=== PATIENT | male | born 1950 | race Caucasian/White ===

== ENCOUNTER 2023-01-12 09:17 | Outpatient (REF) | payer MEDICARE, SELFPAY ==
[2023-01-12 11:33] LABS: Anion Gap 17 (12-20); Blood Urea Nitrogen 35 mg/dL (9-16); Calcium 9.7 mg/dL (8.4-10.2); Carbon Dioxide 21 mmol/L (22-29); Chloride 92 mmol/L (96-108); Estimated Glomerular Filt Rate 56; Potassium 5.2 mmol/L (3.3-5.1); Sodium 125 mmol/L (135-145)
== END 2023-01-12 09:18 | disposition home or self-care (01) ==
LOC: HO.LAB 09:17
PROVIDERS: PCP Internal Medicine; Visit Provider Internal Medicine Nephrology
DX: E87.1 Hypo-osmolality and hyponatremia (principal)
CPT/HCPCS: 36415; 80051; 82310; 82565; 84520

== ENCOUNTER 2023-02-05 09:50 | Outpatient (REF) | payer MEDICARE, OTHER, SELFPAY ==
[2023-02-05 11:14] LABS: Anion Gap 12 (12-20); Blood Urea Nitrogen 26 mg/dL (9-16); Calcium 9.3 mg/dL (8.4-10.2); Carbon Dioxide 27 mmol/L (22-29); Chloride 92 mmol/L (96-108); Estimated Glomerular Filt Rate 57; Potassium 4.8 mmol/L (3.3-5.1); Sodium 126 mmol/L (135-145)
== END 2023-02-05 09:51 | disposition home or self-care (01) ==
LOC: HO.10HDL 09:50
PROVIDERS: Visit Provider Internal Medicine Nephrology
DX: E87.1 Hypo-osmolality and hyponatremia (principal)
CPT/HCPCS: 36415; 80051; 82310; 82565; 84520

== ENCOUNTER 2023-07-20 08:42 | Outpatient (REF) | payer MEDICARE, SELFPAY ==
[2023-07-20 11:39] LABS: Prostate Specific Antigen < 0.10 ng/mL (<0.05-4.0)
== END 2023-07-20 08:43 | disposition home or self-care (01) ==
LOC: HO.10HDL 08:42
PROVIDERS: Visit Provider Physician Assistant
DX: Z12.5 Encounter for screening for malignant neoplasm of prostate (principal); Z85.46 Personal history of malignant neoplasm of prostate
CPT/HCPCS: 36415; 84153

== ENCOUNTER 2023-07-23 11:03 | Day surgery (SDC) | payer MEDICARE, SELFPAY ==
[2023-07-18 08:53] VITALS: BMI 25.2
[2023-07-18 09:23] VITALS: BMI 25.2
--- NOTE | 2023-07-19 14:53 | P.CONAN_ITS ---
Documented by User: Radha Ling NP 07/20/23 09:12 HPI - Anesthesia Eval Consult details Narrative: 72yo M for Right Cataract Extraction IOL Insertion Chronic hyponatremia, baseline ~ 125 No previous cataract on record [facility] Past Medical History Medical History (Updated 07/18/23 @ 09:58 by Michelle Tan RN) Thoracic aortic aneurysm Colon cancer Prostate cancer Chronic hyponatremia Lumbar spinal stenosis Elevated cholesterol HTN (hypertension) CHF (congestive heart failure) PVD (peripheral vascular disease) Non-ischemic cardiomyopathy Surgical History Surgical History (Updated 07/18/23 @ 09:23 by Michelle Tan RN) H/O colonoscopy Hx of ligation of vein History of lumbar fusion Hx of hand surgery History of colon resection Social History Social History (Updated 07/18/23 @ 08:52 by Michelle Tan RN) Are you a primary lpn care manager to a significant other at home: No Do you presently have visiting nurse or other home services: No Patient Tobacco Use Status: Current everyday Tobacco user Tobacco use type: Cigar Cigarettes Per Day: 1 (cigar) Use of substances other than those prescribed or required for medical reasons: Yes Substance Use Type: Marijuana Substance Use Frequency: Occasionally Have you been hit, kicked, punched, or otherwise hurt by someone within the past year? If so, by whom?: No Are you DNR?: No Advance Directives Information Provided: Yes (as above noted) Advance Directives on File: No Recently lost weight without trying: No Eating poorly because of decreased appetite: No Nutrition Risks: No Nutritional Risk Poor oral hygiene: No (upper partial) Meds Allergies Allergy/AdvReac Type Severity Reaction Status Date / Time doxycycline Allergy Intermediate discoloration Verified 07/18/23 08:54 of genitals Home Medications ?Medication ?Instructions ?Recorded ?Confirmed ?Last Taken ?Type atorvastatin 40 mg tablet 40 mg PO DAILY 07/18/23 07/18/23 Unknown History cyanocobalamin (vitamin B-12) 1,000 mcg PO DAILY 07/18/23 07/18/23 Unknown History 1,000 mcg tablet (Vitamin B-12) folic acid 400 mcg tablet 0.4 mg PO DAILY 07/18/23 07/18/23 Unknown History gabapentin 100 mg capsule 100 mg PO BEDTIME 07/18/23 07/18/23 Unknown History lisinopril 40 mg tablet 40 mg PO DAILY 07/18/23 07/18/23 Unknown History metoprolol succinate 100 mg 100 mg PO QAM 07/18/23 07/20/23 07/23/23 History tablet,extended release 24 hr spironolactone 25 mg tablet 25 mg PO DAILY 07/18/23 07/18/23 Unknown History tamsulosin 0.4 mg capsule 0.4 mg PO BID 07/18/23 07/18/23 Unknown History torsemide 10 mg tablet 20 mg PO DAILY 07/18/23 07/18/23 Unknown History vit C 250 mg-vit E 90 mg-zinc 40 1 tab PO BID 07/18/23 07/18/23 Unknown History mg-copper 1 bi-[id number]-ntnyic capsule (PreserVision AREDS-2) Exam Height,Weight and Vital Signs: Height 5 ft 8.9 in Weight 77.2 kg Assessment and Plan Assessment Anesthesia Assessment: Chart Reviewed Documented by User: Matthew Barraza MD 07/23/23 13:51 [facility] Past Medical History Medical History (Updated 07/18/23 @ 09:58 by Michelle Tan RN) Thoracic aortic aneurysm Colon cancer Prostate cancer Chronic hyponatremia Lumbar spinal stenosis Elevated cholesterol HTN (hypertension) CHF (congestive heart failure) PVD (peripheral vascular disease) Non-ischemic cardiomyopathy Family History Family history of problems with anesthesia: No Surgical History Surgical History (Updated 07/18/23 @ 09:23 by Michelle Tan RN) H/O colonoscopy Hx of ligation of vein History of lumbar fusion Hx of hand surgery History of colon resection History of Problems with Anesthesia: No Social History Social History (Updated 07/18/23 @ 08:52 by Michelle Tan RN) Are you a primary lpn care manager to a significant other at home: No Do you presently have visiting nurse or other home services: No Patient Tobacco Use Status: Current everyday Tobacco user Tobacco use type: Cigar Cigarettes Per Day: 1 (cigar) Use of substances other than those prescribed or required for medical reasons: Yes Substance Use Type: Marijuana Substance Use Frequency: Occasionally Have you been hit, kicked, punched, or otherwise hurt by someone within the past year? If so, by whom?: No Are you DNR?: No Advance Directives Information Provided: Yes (as above noted) Advance Directives on File: No Recently lost weight without trying: No Eating poorly because of decreased appetite: No Nutrition Risks: No Nutritional Risk Poor oral hygiene: No (upper partial) Meds Allergies Allergy/AdvReac Type Severity Reaction Status Date / Time doxycycline Allergy Intermediate discoloration Verified 07/18/23 08:54 of genitals Home Medications ?Medication ?Instructions ?Recorded ?Confirmed ?Last Taken ?Type atorvastatin 40 mg tablet 40 mg PO DAILY 07/18/23 07/18/23 Unknown History cyanocobalamin (vitamin B-12) 1,000 mcg PO DAILY 07/18/23 07/18/23 Unknown History 1,000 mcg tablet (Vitamin B-12) folic acid 400 mcg tablet 0.4 mg PO DAILY 07/18/23 07/18/23 Unknown History gabapentin 100 mg capsule 100 mg PO BEDTIME 07/18/23 07/18/23 Unknown History lisinopril 40 mg tablet 40 mg PO DAILY 07/18/23 07/18/23 Unknown History metoprolol succinate 100 mg 100 mg PO QAM 07/18/23 07/20/23 07/23/23 History tablet,extended release 24 hr spironolactone 25 mg tablet 25 mg PO DAILY 07/18/23 07/18/23 Unknown History tamsulosin 0.4 mg capsule 0.4 mg PO BID 07/18/23 07/18/23 Unknown History torsemide 10 mg tablet 20 mg PO DAILY 07/18/23 07/18/23 Unknown History vit C 250 mg-vit E 90 mg-zinc 40 1 tab PO BID 07/18/23 07/18/23 Unknown History mg-copper 1 [id number] capsule (PreserVision AREDS-2) Exam Airway Mallampati Class: III TM Dist: >3cm Neck ROM: Full Loose/Missing/Broken Teeth: No Heart: rrr Lungs: cta Assessment and Plan Assessment Anesthesia Assessment: Anesthesia Plan Discussed Final Anesthetic Review Family History of Problems with Anesthesia: No History of Problems with Anesthesia: No NPO: Yes ASA Class: III Final Preanesthetic Review: No Changes in Pt Med Stat, Meds/Allgs Chart Reviewed, Consent Obtained/Reviewed and Anes Risks/Benef Reviewed Procedure Risk: Low Anesthetic Plan Anesthetic Plan: MAC: Disposition: Standard PACU
--- OUTSIDE RECORDS SUMMARY | 2023-07-23 11:07 | XMS_ITS | Continuity of Care Document ---
Author Organization [facility] Address [address] [place] [address]- Care Team Providers Care Ecdis N Navigation Operator Name Role Phone Luke MOORE, Santana Blanco Primary Care Physician Encounter [facility] R [id number] Date(s): 04/05/23 - 05/05/23 [facility] [address], [place] [address] Attending Physician: Trina White Admitting Physician: AdmtrTrina Referring Physician: AdmtrTrina Allergies, Adverse Reactions, Alerts Substance Reaction Severity Status doxycycline genitals turned black Active Immunizations Given and Recorded Vaccine Date Status Refusal Reason influenza virus vaccine, inactivated 12/25/19 Give n Medications aspirin 81 mg oral delayed release tablet 81 mg, 1, tablet, By Mouth, Daily, # 30 tablet, Refills 0, Tot. Refills 0, Maintenance, 12/27/19 12:45:00 EDT, Route to Pharmacy Electronically, [facility], 175, cm, 12/27/19 9:04:00 EDT, Height, 93, kg, 12/24/19 9:59:00 EDT, Dry Weight Start Date: 12/27/19 Status: Ordered Flomax 0.4 mg oral capsule 1 capsule = 0.4 mg, By Mouth, 2 times a day, # 30 capsule, 0 Refills, Maintenance, Capsule Start Date: 06/05/11 Status: Ordered folic acid 0.4 mg oral tablet 1 tablet = 0.4 mg, By Mouth, Daily, 0 Refills, Maintenance, 08/04/21 8:40:00 EDT, Partial fill uponpatient request if the prescription is for a schedule II opioid drug. Start Date: 08/04/21 Status: Ordered furosemide 20 mg oral tablet 20 mg, 1, tablet, By Mouth, 2 times a day, # 30 tablet, Refills 0, Tot. Refills 0, Maintenance, 12/27/19 13:08:00 EDT, Route to Pharmacy Electronically, [facility], 175, cm, 12/27/19 9:04:00 EDT, Height, 93, kg, 12/24/19 9:59:00 EDT, Dry... Start Date: 12/27/19 Status: Ordered Lipitor 40 mg oral tablet 1 tablet = 40 mg, By Mouth, Daily, # 30 tablet, 0 Refills, Maintenance, Tablet Start Date: 06/05/11 Status: Ordered lisinopril 20 mg oral tablet 1 tablet = 20 mg, By Mouth, Daily, # 30 tablet, 0 Refills, Maintenance, Tablet Start Date: 06/05/11 Status: Ordered metoprolol 100 mg oral tablet, extended release 100 mg, 1, tablet, By Mouth, Daily at bedtime, # 30 tablet, Refills 0, Tot. Refills 0, Maintenance,12/27/19 12:46:00 EDT, Route to Pharmacy Electronically, [facility], 175, cm, 12/27/19 9:04:00 EDT, Height, 93, kg, 12/24/19 9:59:00 EDT,... Start Date: 12/27/19 Status: Ordered PreserVision AREDS 2 2 times a day, 0 Refills, Maintenance, 08/04/21 8:41:00 EDT, Partial fill upon patient request if the prescription is for a schedule II opioid drug. Start Date: 08/04/21 Status: Ordered spironolactone 25 mg oral tablet 25 mg, 1, tablet, By Mouth, Daily, # 30 tablet, Refills 0, Tot. Refills 0, Maintenance, 12/27/19 12:46:00 EDT, Route to Pharmacy Electronically, [facility], 175, cm, 12/27/19 9:04:00 EDT, Height, 93, kg, 12/24/19 9:59:00 EDT, Dry Weight Start Date: 12/27/19 Status: Ordered torsemide 10 mg oral tablet 1 tablet = 10 mg, By Mouth, Daily, 0 Refills, Maintenance, 08/04/21 8:39:00 EDT, Partial fill upon patient request if the prescription is for a schedule II opioid drug. Start Date: 08/04/21 Status: Ordered trospium chloride 20 mg oral tablet 1 tablet = 20 mg, By Mouth, 2 times a day, 0 Refills, Maintenance, 08/04/21 8:40:00 EDT, Partial fill upon patient request if the prescription is for a schedule II opioid drug. Start Date: 08/04/21 Status: Ordered Vitamin B12 1000 mcg oral tablet 1 tablet = 1,000 mcg, By Mouth, Daily, 0 Refills, Maintenance, 08/04/21 8:41:00 EDT, Partial fill upon patient request if the prescription is for a schedule II opioid drug. Start Date: 08/04/21 Status: Ordered Problem List Condition Confirmation Course Effective Dates Status H ealth Status Informant Acquired hallux rigidus Confirmed 03/30/20 Active Acquired hammer toes of bilateral feet Confirmed 03/30/20 Active Ascending aortic aneurysm Confirmed Active Atherosclerosis of arteries of the extremities Confirmed 01/16/22 Active Benign essential hypertension Confirmed 02/03/21 Active Cardiomyopathy 1 Confirmed 02/17/20 Active Chronic systolic heart failure Confirmed 02/17/20 Active Coronary arteriosclerosis 2 Confirmed 02/17/20 Active Dyslipidemia 3 Confirmed 02/17/20 Active Hyperlipidemia Confirmed Active Hypertension Confirmed Active Peripheral nerve disease Confirmed 03/30/20 Active PVD (peripheral vascular disease) Confirmed Active Spinal stenosis of lumbar region Confirmed 04/25/21 Active 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 His physical exam does reveal slightly diminished breath sounds on the left side. We will intensify his diuretic therapy to torsemide 20 mg once daily with a basic metabolic profile in about a week's time. Patient does understand and agree. He also plans to see renal in the upcoming week or so. Continue ongoing medical therapy for his myopathywith JOHANNY inhibitor, beta-audie, Aldactone. Entresto has been cost prohibitive. 2Outside Source Comment: Overview: Cath 12/2019 showed moderate stenosis of the mid LAD and severe stenosis of the distal circumflex not amenable to PCI CI. 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 Continue ongoing medical therapy with aspirin, beta-audie, Aldactone, statin and JOHANNY inhibitor. 3Outside Source Comment: Overview: Last Assessment & Plan: Well-controlled lipid profile from earlier this year. Continue statin at current dose. Social History Social History Type Response Smoking Status Never (less than 100 in lifetime) entered on: 11/27/22 Sex Patient Care team information Care Team Personnel Name: Luke MOORE, Santana Blanco Position: [facility] Outreach Member Role: PCP Address: Address: [address] [place] [address] - [address] [place] [employer], [address] Care Team Related Persons Name: JUSTA MALLOY Address: home [address] [place] [address] Name: STEPHIE DUMONT Address: [place] [address]
--- OUTSIDE RECORDS SUMMARY | 2023-07-23 11:07 | XMS_ITS | Continuity of Care Document ---
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 Refills 0, Maintenance, 12/27/19 12:45:00 EDT, Route to Pharmacy Electronically, [facility], 175, cm, 12/27/19 9:04:00 [...] 12/27/19 13:08:00 EDT, Route to Pharmacy Electronically, [facility], 175, cm, 12/27/19 9:04:00 [...] Maintenance,12/27/19 12:46:00 EDT, Route to Pharmacy Electronically, [facility], 175, cm, 12/27/19 9:04:00 [...] 12/27/19 12:46:00 EDT, Route to Pharmacy Electronically, [facility], 175, cm, 12/27/19 9:04:00 [...] 1Outside Source Comment: Overview: LVEF December 2019 [facility] 30-35% with inferior wall and basal [...] this year. Continue statin at current dose. 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, bilateral Discharge Diagnosis 11/30/22 Vital Signs Most recent to oldest [Reference Range]: 1 Height 175 cm (11/30/22 9:19 AM) Weight 77.5 kg (11/30/22 9:19 AM) Pulse Rate [55-90 bpm] 50 bpm *L* (11/30/22 9:19 AM) Body Mass Index [18.5-24.99 kg/m2] 25.31 kg/m2 *H* (11/30/22 9:19 AM) Blood Pressure [90-138/55-84 mm Hg] 146/ 90mm Hg *H* (11/30/22 9:19 AM) Blood pressure sites Arm, left (11/30/22 9:19 AM) Weight Obtained Via Patient/family state d (11/30/22 9:19 AM) Social History Social History Type Response Smoking Status Never (less than 100 in lifetime) entered on: 11/27/22 Sex Note * Marie Haro: PERFORM, SIGN, VERIFY Event Display: Patient Education/Instruction Authored Date: [id number] [facility] *[facility] [address] Clinical Summary Name SARTHAK MALLOY Age 72 Years 1950 PCP Luke MOORE, Santana Blanco PCP Visit Date 11/30/2022 09:10:00 Additional Instructions: Scheduled Appointments?? Future Appointments ?No Future Appointments Scheduled Follow-Up Instructions ?? With: Address: When: Galilea MOORE, Christofer Packer In 6 months Comments: NIAS VIB Diagnosis Asymptomatic varicose veins of bilateral lower extremities; Peripheral vascular disease, unspecified Medications: Please continue your medications until treatment is completed or stopped by your provider. Discuss any questions related to medications with your provider. Medications to Continue with No Changes These medications were not printed or sent to your pharmacy Aspirin (aspirin 81 mg oral delayed release tablet) 1 tab(s) Oral Daily. Refills: 0. Next Dose: Atorvastatin (Lipitor 40 mg oral tablet) 1 tab(s) Oral Daily. Next Dose: Cyanocobalamin (Vitamin B12 1000 mcg oral tablet) 1 tab(s) Oral Daily. Next Dose: Folic Acid (folic acid 0.4 mg oral tablet) 1 tab(s) Oral Daily. Next Dose: Furosemide (furosemide 20 mg oral tablet) 1 tab(s) Oral twice a day. Refills: 0. Next Dose: Lisinopril (lisinopril 20 mg oral tablet) 1 tab(s) Oral Daily. Next Dose: Metoprolol (metoprolol 100 mg oral tablet, extended release) 1 tab(s) Oral Daily at Bedtime. Refills: 0. Next Dose: Multivitamin With Minerals (PreserVision AREDS 2) twice a day. Next Dose: Spironolactone (spironolactone 25 mg oral tablet) 1 tab(s) Oral Daily. Refills: 0. Next Dose: Tamsulosin (Flomax 0.4 mg oral capsule) 1 capsule Oral twice a day. Next Dose: torsemide (torsemide 10 mg oral tablet) 1 tab(s) Oral Daily. Next Dose: Trospium Chloride (trospium chloride 20 mg oral tablet) 1 tab(s) Oral twice a day. Next Dose: Allergy Info:?? doxycycline Medications Given This Visit Future Orders ?VL Ankle Brachial Indices? Order Date:11/30/22?- Complete on or after?11/30/22 ?VL Arterial Duplex Bilat Scan? Order Date:11/30/22?- Complete by?11/30/22 ?VL Venous Dup Scan Venous Insuf LE Bilat? Order Date:11/30/22?- Complete by?11/30/22 Vital Signs Height 175 cm Weight 77.5 kg BMI 25.31 kg/m2 Blood Pressure 146 mm Hg/90 mm Hg Temperature Pulse Rate 50 bpm Respiratory Rate 02 Sat Mode of Delivery / You can now view a summary of your hospital visit from the comfort of your home through a free online portal called [employer]. [employer] is a website that allows you to securely view your medical information including discharge summary, medications and follow-up visits. ??You can alsosend a secure electronic message to your doctor???s office to request appointments, renew medications or just ask a question. You can enroll at [email or web address] or register during your next office visit. Disclaimer:?? The information provided is of a general nature and is intended to be used in conjunction with the recommendations and advice of your health care practitioner. ??Every effort has been made to ensure that the information provided is accurate and complete at the time it is provided to you however, as your needs change, or, as new ??information becomes available, different or additional instructions may be required. If you have questions, please consult with your primary care provider or pharmacist, as appropriate. ??This information is not intended to serve as substitution for assessment and evaluation by a qualified health care provider. If you do not have a primary care provider, you may find a [facility] provider by calling [facility] [employer] Link at [phone]. [facility], in keeping with [facility] guidance, no longer requires face masks for staff, patientsor visitors in most situations. Similar to time spent indoors at other locations, there is the chance that you were exposed to respiratory viruses during your time with us (such as flu or COVID-19).? If you develop symptoms concerning for a viral respiratory infection, please seek testing (and treatment if indicated) from your medical provider or home test kit. For information about the plan of care including goals and instructions for your diagnosis, please see the patient education orders section of this document. Patient Education Materials?? The content of this educational material or handout may have been modified, supplemented, or adapted from its original content and format to support your individualized medical care. Patient Care team information Care Team Personnel Name: Santana Butler MD Position: [facility] Outreach Member Role: PCP Address: Address: [address] [place] [address] - [address] [employer], [facility] [place] [address]- Care Team Related Persons Name: JUSTA MALLOY Address: home [address] [place] [address] Name: STEPHIE DUMONT Address: [place] [address]
--- OUTSIDE RECORDS SUMMARY | 2023-07-23 11:07 | XMS_ITS | Continuity of Care Document ---
Author Organization [facility] Address [address] [place] [address]- Care Team Providers Care Broom Maker Name Role Phone Santana Butlre MD Primary Care Physician [id number] Date(s): 09/29/22 - 12/01/22 [facility] [address] [place], [place] [address] Attending Physician: Quinton Camarena MD Admitting Physician: Quinton Camarena MD Referring Physician: Santana Butler MD Allergies, [...] 12/27/19 12:45:00 EDT, Route to Pharmacy Electronically, [facility], 175, cm, 12/27/19 9:04:00 [...] 12/27/19 13:08:00 EDT, Route to Pharmacy Electronically, [facility], 175, cm, 12/27/19 9:04:00 EDT, Height, [...] Maintenance,12/27/19 12:46:00 EDT, Route to Pharmacy Electronically, [facility], 175, cm, 12/27/19 9:04:00 EDT, Height, [...] 12:46:00 EDT, Route to Pharmacy Electronically, [facility], 175, cm, 12/27/19 9:04:00 EDT, Height, [...] 1Outside Source Comment: Overview: LVEF December 2019 [facility] 30-35% with inferior wall and basal [...] Team Personnel Name: Santana Butler MD Position: [facility] Outreach Member Role: PCP Address: Address: [address] [place] [address] - [address] [employer], [place] [address]- Care Team Related Persons Name: JUSTA MALLOY Address: home [address] [place] [address] Name: STEPHIE DUMONT Address: [place] [address]
--- OUTSIDE RECORDS SUMMARY | 2023-07-23 11:07 | XMS_ITS | Continuity of Care Document ---
Author Organization [facility] Address [address] [place] [address]- Care Team Providers Care Desulphuring Operator Name Role Phone Luke MOORE, Santana Blanco Primary Care Physician Encounter [facility] [place] Date(s): 09/29/22 - 10/29/22 [facility] [address] [place] [address] [place] Allergies, Adverse Reactions, Alerts Substance Reaction Severity Status doxycycline genitals turned black Active Immunizations Given and Recorded Vaccine Date Status Refusal Reason influenza virus vaccine, inactivated 12/25/19 Give n Not Given Vaccine Date Status Refusal Reason pneumococcal 13-valent vaccine 12/25/19 Not Given Patient Refuses Medications aspirin 81 mg oral delayed release tablet 81 mg, 1, tablet, By Mouth, Daily, # 30 tablet, Refills 0, Tot. Refills 0, Maintenance, 12/27/19 12:45:00 EDT, Route to Pharmacy Electronically, [facility], 175, cm, 12/27/19 9:04:00 EDT, [...] 12/27/19 13:08:00 EDT, Route to Pharmacy Electronically, [facility], 175, cm, 12/27/19 9:04:00 EDT, [...] Maintenance,12/27/19 12:46:00 EDT, Route to Pharmacy Electronically, [facility], 175, cm, 12/27/19 9:04:00 EDT, [...] 12/27/19 12:46:00 EDT, Route to Pharmacy Electronically, [facility], 175, cm, 12/27/19 9:04:00 EDT, [...] opioid drug. Start Date: 08/04/21 Status: Ordered Patient Care team information Care Team Personnel Name: Santana Butler MD Position: [facility] Outreach Member Role: PCP Address: Address: [address] [place] [address] - [address] [place] [address], [place] [address]- Care Team Related Persons Name: JUSTA MALLOY Address: home [address] [place] [id number] Name: STEPHIE DUMONT Address: [place] [address]
--- OUTSIDE RECORDS SUMMARY | 2023-07-23 11:07 | XMS_ITS | Continuity of Care Document ---
Author Organization [facility] Address [address] [place] [address]- Care Team Providers Care Supervisor Plastics Name Role Phone Santana Butler MD Primary Care Physician Encounter [facility] [place] Date(s): 06/15/23 - 07/15/23 [facility] [address] [place], [place] [address] Attending Physician: Trina White Admitting Physician: AdmTrina landry Referring Physician: AdmtrTrina Allergies, Adverse Reactions, Alerts Substance Reaction Severity Status doxycycline genitals turned black Active Immunizations Given and Recorded Vaccine Date Status Refusal Reason influenza virus vaccine, inactivated 12/25/19 Give n Medications aspirin 81 mg oral delayed release tablet 81 mg, 1, tablet, By Mouth, Daily, # 30 tablet, Refills 0, Tot. Refills 0, Maintenance, 12/27/19 12:45:00 EDT, Route to Pharmacy Electronically, [facility], 175, cm, 12/27/19 9:04:00 [...] opioid drug. Start Date: 08/04/21 Status: Ordered gabapentin 100 mg oral capsule TAKE 1 CAPSULE AT BEDTIME ,INCREASE BY 1 CAPSULE EVERY OTHER DAY NEEDED UP TO 3 CAPS 3X A DAY Start Date: 07/09/23 Status: Ordered Lipitor 40 mg oral tablet [...] Maintenance,12/27/19 12:46:00 EDT, Route to Pharmacy Electronically, [facility], 175, cm, 12/27/19 9:04:00 [...] 12/27/19 12:46:00 EDT, Route to Pharmacy Electronically, [facility], 175, cm, 12/27/19 9:04:00 [...] Active PVD (peripheral vascular disease) Confirmed Active Polyneuropathy Confirmed Active Spinal stenosis of lumbar region Confirmed 04/25/21 Active 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, bilateral Confirmed Active Chronic venous hypertension (idiopathic) with other complications of right lower extremity Confirmed Active Chronic venous hypertension (idiopathic) with other complications of left lower extremity Confirmed Active 1Outside Source Comment: Overview: LVEF December 2019 [facility] 30-35% with inferior wall and basal [...] History Social History Type Response Smoking Status Cigars or pipes but not daily within last 30 days;Former smoker, quit more than 30 days ago; Type: Cigarettes entered on: 06/15/23 Sex Patient Care team information Care Team Personnel Name: Santana Butler MD Position: [facility] Outreach Member Role: PCP Address: Address: [address] [place] [address] - [address] [facility] [employer], [place] [address]- Care Team Related Persons Name: JUSTA MALLOY Address: home [address] [place] [id number] Name: STEPHIE DUMONT Address: [place] [address]
--- OUTSIDE RECORDS SUMMARY | 2023-07-23 11:07 | XMS_ITS | Patient Health Record ---
Author Organization [facility] Address [address] [place] [address] Care Team Providers Care Deputy Court Clerk Name Role Phone Santana Butler MD Primary Care Provider Aris Macario Unavailable [phone] ALLERGIES Allergen (clinical drug ingredient) Drug/Non Drug Allergy documented on EMR Reaction Allergy Type Onset Date Status hay fever (uncoded) Unknown Allergy Active doxycycline Doxycycline Unknown Drug Allergy Act jeremy REASON FOR REFERRAL No Information MEDICATIONS Medication SIG (Take, Route, Frequency, Duration) Notes Start Date End Date Status Tamsulosin HCl 0.4 MG 1 capsule Orally O nce a day Active Ammonium Lactate 12 % 1 application to affected area Externally to feet Twice a day for 30 days Active Torsemide Active Spironolactone Activ e PreserVision AREDS A ctive Metoprolol Succinate 100 MG 1 capsule Orally Once a day Active Lisinopril Active Aspirin Active oxyBUTYnin Chloride ER 10 MG 1 tablet Orally Once a day Not-Taking Metoprolol Tartrate 100 MG 1 tablet with food Orally Twice a day Not-Taking Folic Acid Active Lidocaine 5 % 1 application as needed Externally Three times a day for 30 days 09/07/2022 Not-Taking Atorvastatin Calcium 40 MG 1 tablet Oral ly Once a day Active Indomethacin 50 MG 1 capsule with food or milk Orally Twice a day Not-Taking SOCIAL HISTORY Tobacco Use: Social History Observation Description Date Details (start date - stop date) Former Smoker NA - NA Sex Assigned At : Social History Observation Description Sex Assigned At Unknown Tobacco Use/Smoking Question Answer Notes Are you a: former smoker When did you stop smoking? 20 yrs ago Additional Findings: Tobacco Non-User Current no n-smoker Alcohol Screen Question Answer Notes Did you have a drink contain ing alcohol in the past year? Yes How often did you have a dri nk containing alcohol in the past year? 4 or more times a week (4 points) How many drinks did you have on a typical day when you were drinking in the past year? 1 or 2 drinks (0 point) How often did you have 6 or more drinks on one occasion in the past year? Never (0 point) Points 4 Interpretation Positive Tobacco use other than smoking: Question Answer Notes Are you an other tobacco user? No PROBLEMS Problem Type ICD Code Onset Dates Problem Status W/U Status Risk SNOMED Code Notes Problem Plantar wart (B07.0) Active confirmed Plantar wart (43884715) Problem Atherosclerosis of [place] artery of both lower extremities, with unspecified presence of clinical manifestation (I70.203) Active confirmed Atherosclerosis of [place] arteries of the extremities (111242895394242) VITAL SIGNS Height 5ft 9in in 06/27/2023 Weight 170 lbs 06/27/2023 BMI 25.1 kg/m2 06/27/2023 PROCEDURES Procedure Date Ordered Date Performed Result Body Sit e 83495-TUHBUWY NAIL, 6 OR MORE 07/27/2022 N/A 51267-Hszt Destruction, 1-14 07/27/2022 N/A 66094-JRDD SKIN LESIONS, OVER 4 07/27/2022 N/A 36236-Hwcp Destruction, 1-14 09/07/2022 N/A 17091-EVDDBJP NAIL, 6 OR MORE 10/19/2022 N/A 86766-Scjk Destruction, 1-14 10/19/2022 N/A 39614-DHBW SKIN LESIONS, OVER 4 10/19/2022 N/A 90179-YRTVAAG NAIL, 6 OR MORE 01/08/2023 N/A 26734-Rtkj Destruction, 1-14 01/08/2023 N/A 62957-KDCH SKIN LESIONS, OVER 4 01/08/2023 N/A 54307-Jurv Destruction, 1-14 02/19/2023 N/A 52627-JTDZKMY NAIL, 6 OR MORE 03/26/2023 N/A 11923-Yeop Destruction, 1-14 03/26/2023 N/A 56721-QVAH SKIN LESIONS, OVER 4 03/26/2023 N/A 23316-Ljvw Destruction, 1-14 05/14/2023 N/A 86752-ARTZFRE NAIL, 6 OR MORE 06/27/2023 N/A 93778-Tmab Destruction, 1-14 06/27/2023 N/A 40982-UEXZ SKIN LESIONS, OVER 4 06/27/2023 N/A Encounters Encounter Location Date Provider Diagnosis [address] [address] 07/27/2022 Aris Torres Atherosclerosis of [place] artery of both lower extremities, with unspecified presence of clinical manifestation I70.203 ; Plantar wart B07.0 ; Tinea unguium B35.1 ; Pain in right toe(s) M79.674 ; Pain in left toe(s) M79.675 ; Pain in right foot M79.671 and Xerosis cutis L85.[address] [address] 09/07/2022 Aris Torres Plantar wart B07.0 ; Pain in right foot M79.671 ; Hammertoe of second toe of right foot M20.41 and Pain in right toe(s) M79.[address] [address] 10/19/2022 Aris Torres Atherosclerosis of [place] artery of both lower extremities, with unspecified presence of clinical manifestation I70.203 ; Onychomycosis B35.1 ; Pain of toe of right foot M79.674 ; Pain of toe of left foot M79.675 ; Verruca pedis B07.0 and Right foot pain M79.[address] [address] 11/23/2022 Aris Torres [address] [address] 11/23/2022 Aris Torres [address] [address] 01/08/2023 Aris Torres Atherosclerosis of [place] artery of both lower extremities, with unspecified presence of clinical manifestation I70.203 ; Onychomycosis B35.1 ; Pain of toe of right foot M79.674 ; Pain of toe of left foot M79.675 ; Verruca pedis B07.0 and Right foot pain M79.671 [facility] [address] [address] 02/19/2023 Arisstefano Torres Right foot pain M79.671 ; Plantar wart B07.0 ; Pain in right ankle and joints of right foot M25.571 ; Bursitis of intermetatarsal bursa of right foot M77.51 and Metatarsalgia, right foot M77.[address] [address] [facility] [address] 03/26/2023 Aris Torres Atherosclerosis of [place] artery of both lower extremities, with unspecified presence of clinical manifestation I70.203 ; Onychomycosis B35.1 ; Pain of toe of right foot M79.674 ; Pain of toe of left foot M79.675 ; Verruca pedis B07.0 and Right foot pain M79.[address] [address] 04/30/[address] [address] 04/30/2023 [facility] [address] [facility]/10/2023 [facility] [address] 05/14/2023 Aris Torres Right foot pain M79.671 and Plantar wart B07.[address] [address] 06/27/2023 Aris Torres Atherosclerosis of [place] artery of both lower extremities, with unspecified presence of clinical manifestation I70.203 ; Onychomycosis B35.1 ; Pain of toe of right foot M79.674 ; Pain of toe of left foot M79.675 ; Verruca pedis B07.0 and Right foot pain M79.671 ASSESSMENTS Encounter Date Diagnosis Assessment Notes Treatment Notes Treatment Clinical Notes 07/27/2022 Plantar wart (ICD-10 - B07.0) 07/27/2022 Atherosclerosis of [place] artery of both lower extremities, with unspecified presence of clinical manifestation (ICD-10 - I70.203) 09/07/2022 Pain in right foot (ICD-10 - M79.671) 09/07/2022 Plantar wart (ICD-10 - B07.0) 10/19/2022 Onychomycosis (ICD-1 0 - B35.1) 10/19/2022 Atherosclerosis of [place] artery of both lower extremities, with unspecified presence of clinical manifestation (ICD-10 - I70.203) 01/08/2023 Onychomycosis (ICD-1 0 - B35.1) 01/08/2023 Atherosclerosis of [place] artery of both lower extremities, with unspecified presence of clinical manifestation (ICD-10 - I70.203) 02/19/2023 Right foot pain (ICD-10 - M79.671) 03/26/2023 Onychomycosis (ICD-1 0 - B35.1) 03/26/2023 Atherosclerosis of [place] artery of both lower extremities, with unspecified presence of clinical manifestation (ICD-10 - I70.203) 05/14/2023 Plantar wart (ICD-10 - B07.0) 05/14/2023 Right foot pain (ICD-10 - M79.671) 06/27/2023 Onychomycosis (ICD-1 0 - B35.1) 06/27/2023 Atherosclerosis of [place] artery of both lower extremities, with unspecified presence of clinical manifestation (ICD-10 - I70.203) 06/27/2023 Pain of toe of right foot (ICD-10 - M79.674) 03/26/2023 Pain of toe of right foot (ICD-10 - M79.674) 02/19/2023 Pain in right ankle and joints of right foot (ICD-10 - M25.571) 02/19/2023 Plantar wart (ICD-10 - B07.0) 01/08/2023 Pain of toe of right foot (ICD-10 - M79.674) 09/07/2022 Hammertoe of second toe of right foot (ICD-10 - M20.41) 10/19/2022 Pain of toe of right foot (ICD-10 - M79.674) 07/27/2022 Tinea unguium (ICD-1 0 - B35.1) 07/27/2022 Pain in right toe(s) (ICD-10 - M79.674) 10/19/2022 Pain of toe of left foot (ICD-10 - M79.675) 09/07/2022 Pain in right toe(s) (ICD-10 - M79.674) 01/08/2023 Pain of toe of left foot (ICD-10 - M79.675) 02/19/2023 Bursitis of intermetatarsal bursa of right foot (ICD-10 - M77.51) 03/26/2023 Pain of toe of left foot (ICD-10 - M79.675) 06/27/2023 Pain of toe of left foot (ICD-10 - M79.675) 06/27/2023 Verruca pedis (ICD-1 0 - B07.0) Chronic 03/26/2023 Verruca pedis (ICD-1 0 - B07.0) Chronic 10/19/2022 Verruca pedis (ICD-1 0 - B07.0) 02/19/2023 Metatarsalgia, right foot (ICD-10 - M77.41) 01/08/2023 Verruca pedis (ICD-1 0 - B07.0) Chronic 07/27/2022 Pain in left toe(s) (ICD-10 - M79.675) 07/27/2022 Pain in right foot (ICD-10 - M79.671) 01/08/2023 Right foot pain (ICD-10 - M79.671) 10/19/2022 Right foot pain (ICD-10 - M79.671) 03/26/2023 Right foot pain (ICD-10 - M79.671) 06/27/2023 Right foot pain (ICD-10 - M79.671) 07/27/2022 Xerosis cutis (ICD-1 0 - L85.3) PLAN OF TREATMENT Pending Test Test Name Order Date 71727-JWMJIXX NAIL, 6 OR MORE 04/10/2022 19660-AYKKCCE NAIL, 6 OR MORE 07/27/2022 07952-VOMBKTK NAIL, 6 OR MORE 10/19/2022 94672-MGKWFMX NAIL, 6 OR MORE 03/26/2023 81479-TRDNLOQ NAIL, 6 OR MORE 06/27/2023 12169-PYUZDAT NAIL, 6 OR MORE 03/25/2018 50346-BUDRSJS NAIL, 6 OR MORE 06/24/2018 66481-QJGSKCE NAIL, 6 OR MORE 10/07/2018 12001-NHOQUCD NAIL, 6 OR MORE 01/06/2019 74311-KAUGSON NAIL, 6 OR MORE 04/16/2019 62697-OEQJSAP NAIL, 6 OR MORE 07/16/2019 75085-HAYTCGI NAIL, 6 OR MORE 04/25/2021 96534-WGALJYU NAIL, 6 OR MORE 07/25/2021 25271-MYRRIUX NAIL, 6 OR MORE 10/24/2021 89349-XWNOTSL NAIL, 6 OR MORE 01/23/2022 02255-DVEEHXM NAIL, 6 OR MORE 01/08/2023 07201-Aibg Destruction, -01/08/2023 90251-Emnv Destruction, -05/14/2023 54567-Bfar Destruction, -14 01/23/2022 21420-Mbsb Destruction, -14 12/15/2021 89655-Rnue Destruction, -14 02/19/2023 44288-Lxvh Destruction, -14 10/24/2021 28613-Ftpn Destruction, -14 07/16/2019 76716-Basr Destruction, -14 04/16/2019 79091-Iyqt Destruction, -14 01/06/2019 57440-Yqdp Destruction, 04-0110/07/2018 27743-Rzop Destruction, -14 06/24/2018 44809-Sqat Destruction, -14 06/27/2023 35385-Fvot Destruction, -14 03/26/2023 37023-Oizl Destruction, -10/19/2022 55190-Tiqk Destruction, -04/12/2017 60253-Xiba Destruction, 04-0107/16/2017 14533-Bhgh Destruction, 04-0110/17/2017 89593-Sdiz Destruction, 04-0101/10/2018 39211-Mggd Destruction, 04-0103/25/2018 57399-Uhfn Destruction, 04-0107/27/2022 46682-Uvsm Destruction, 04-0105/29/2022 54718-Ouaa Destruction, 04-0109/07/2022 01066-Fovk Destruction, 04-0104/10/2022 84935-Fhfi Destruction, 04-0103/02/2022 33259-Jplvcrke Plate 04/25/2021 25344- Debride <25 sq cm 04/10/2022 78347-HCPUEGC SKIN/TISSUE 03/22/2022 58143-JYQU SKIN LESIONS, OVER 4 01/24/20 22 69973-TGZI SKIN LESIONS, OVER 4 10/25/19 22 17794-ZCFP SKIN LESIONS, OVER 4 01/09/20 23 86846-IXWW SKIN LESIONS, OVER 4 04/10/19 23 19606-TAFC SKIN LESIONS, OVER 4 07/28/19 23 68587-VFYA SKIN LESIONS, OVER 4 10/20/19 23 65127-HFUA SKIN LESIONS, OVER 4 03/26/19 24 94754-MIIV SKIN LESIONS, OVER 4 04/25/19 22 67832-CMLS SKIN LESIONS, OVER 4 07/26/19 22 73936-XYVS SKIN LESIONS, OVER 4 06/27/19 24 Insurance Providers Payer Name Payer Address Payer Phone Subscriber Number Group Number Insured Name Patient Relationship to Insured Coverage Start Date Coverage End Date [employer]age [address] [place] [address] [id number] Anselmo Rod Self - patient is the insured MEDICAL (GENERAL) HISTORY Medical History History ICD Code Arthritis Back,Hip,and Knee pain Cancer Cholesterol High blood pressure Gout Mumps Surgical History Surgery Date(Month/Year) back surgery colon hand/wrist 05/10/17
--- OUTSIDE RECORDS SUMMARY | 2023-07-23 11:07 | XMS_ITS | Continuity of Care Document ---
Author Organization [facility] Address [address] [place] [address]- Care Team Providers Care Shot Bagger Name Role Phone Santana Butler MD Primary Care Physician Encounter [facility] ACCT R [id number] Date(s): 08/26/20 - 09/25/20 [facility] [address] [place] [id number] Attending Physician: Trina White Admitting Physician: AdmTrina [...] 12/27/19 12:45:00 EDT, Route to Pharmacy Electronically, [facility], 175, cm, 12/27/19 9:04:00 EDT, Height, 93, kg, 12/24/19 9:59:00 EDT, Dry Weight Start Date: 12/27/19 Status: Ordered Flomax 0.4 mg oral capsule 1 capsule = 0.4 mg, By Mouth, 2 times a day, # 30 capsule, 0 Refills, Maintenance, Capsule Start Date: 06/05/11 Status: Ordered furosemide 20 mg oral tablet 20 mg, 1, tablet, By Mouth, 2 times a day, # 30 tablet, Refills 0, Tot. Refills 0, Maintenance, 12/27/19 13:08:00 EDT, Route to Pharmacy Electronically, [facility], 175, cm, 12/27/19 9:04:00 [...] Maintenance,12/27/19 12:46:00 EDT, Route to Pharmacy Electronically, [facility], 175, cm, 12/27/19 9:04:00 EDT, Height, 93, kg, 12/24/19 9:59:00 EDT,... Start Date: 12/27/19 Status: Ordered spironolactone 25 mg oral tablet 25 mg, 1, tablet, By Mouth, Daily, # 30 tablet, Refills 0, Tot. Refills 0, Maintenance, 12/27/19 12:46:00 EDT, Route to Pharmacy Electronically, [facility], 175, cm, 12/27/19 9:04:00 EDT, Height, 93, kg, 12/24/19 9:59:00 EDT, Dry Weight Start Date: 12/27/19 Status: Ordered
--- OUTSIDE RECORDS SUMMARY | 2023-07-23 11:07 | XMS_ITS | Continuity of Care Document ---
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, bilateral (Discharge Diagnosis) - 06/13/23 Chronic systolic heart failure(Discharge Diagnosis) - 06/13/23 Chronic venous hypertension (idiopathic) with other complications of right lower extremity(Discharge Diagnosis) - 06/14/23 Chronic venous hypertension (idiopathic) with other complications of left lower extremity(Discharge Diagnosis) - 06/14/23 Hyperlipidemia(Discharge Diagnosis) - 06/15/23 Polyneuropathy(Discharge Diagnosis) - 06/15/23 Attending Physician: Christofer Calero MD Admitting Physician: Christofer Calero MD Allergies, Adverse Reactions, Alerts Substance Reaction Severity Status doxycycline genitals turned black Active Immunizations Given and Recorded Vaccine Date Status Refusal Reason influenza virus vaccine, inactivated 12/25/19 Give n Medications aspirin 81 mg oral delayed release tablet 81 mg, 1, tablet, By Mouth, Daily, # 30 tablet, Refills 0, Tot. Refills 0, Maintenance, 12/27/19 12:45:00 EDT, Route to Pharmacy Electronically, [facility], 175, cm, 12/27/19 9:04:00 [...] 12/27/19 13:08:00 EDT, Route to Pharmacy Electronically, [facility], 175, cm, 12/27/19 9:04:00 [...] Maintenance,12/27/19 12:46:00 EDT, Route to Pharmacy Electronically, [facility], 175, cm, 12/27/19 9:04:00 [...] 12/27/19 12:46:00 EDT, Route to Pharmacy Electronically, [facility], 175, cm, 12/27/19 9:04:00 [...] 1Outside Source Comment: Overview: LVEF December 2019 [facility] 30-35% with inferior wall and basal [...] Informant PVD (peripheral vascular disease) Discharge Diagnosis 06/13/23 Chronic systolic heart failure Discharge Diagnosis 06/13/23 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, bilateral Discharge Diagnosis 06/13/23 Chronic venous hypertension (idiopathic) with other complications of right lower extremity Discharge Diagnosis 06/14/23 Chronic venous hypertension (idiopathic) with other complications of left lower extremity Discharge Diagnosis 06/14/23 Hyperlipidemia Discharge Diagnosis 06/15/23 Polyneuropathy Discharge Diagnosis 06/15/23 Vital Signs Most recent to oldest [Reference Range]: 1 Height 175 cm (06/15/23 8:23 AM) Weight 79.38 kg (06/15/23 8:23 AM) Pulse Rate [55-90 bpm] 46 bpm *L* (06/15/23 8:23 AM) Body Mass Index [18.5-24.99 kg/m2] 25.92 kg/m2 *H* (06/15/23 8:23 AM) Blood Pressure [90-138/55-84 mm Hg] 140/ 66mm Hg *H* (06/15/23 8:23 AM) Blood pressure sites Arm, left (06/15/23 8:23 AM) Weight Obtained Via Patient/family state d (06/15/23 8:23 AM) Social History Social History Type Response Smoking Status Cigars or pipes but not daily within last 30 days;Former smoker, quit more than 30 days ago; Type: Cigarettes entered on: 06/15/23 Sex Note * Marie Haro: PERFORM, SIGN, VERIFY Event Display: Patient Education/Instruction Authored Date: [id number] [facility] [address] Clinical Summary Name SARTHAK MALLOY Age 72 Years 1950 PCP Luke MOORE, Santana Blanco PCP Visit Date 06/15/2023 07:53:00 Additional Instructions: Scheduled Appointments?? Future Appointments ?*[facility] ?[address]??[place],??[place],??[address] ?Phone:??--?Fax:??-- ?Appt. Date:??07/09/2023?10:15 AM ?Scheduled Provider:??Bo Barnett MD Follow-Up Instructions ?? With: Address: When: Christofer Calero MD In 12 months Comments: Non Invasive Arterial Studies Diagnosis Chronic venous hypertension (idiopathic) with other complications of left lower extremity; Asymptomatic varicose veins of bilateral lower extremities; Chronic systolic (congestive) heart failure; Peripheral vascular disease, unspecified; Hyperlipidemia, unspecified; Polyneuropathy, unspecified; Chronic venous hypertension (idiopathic) with other complications of right lower extremity Medications: Please continue your medications until treatment [...] Medications Given This Visit Future Orders ?VL Lower Arterial PVR Without Exercise? Order Date:06/15/23?- Complete by?06/15/23 Future Orders ?VL Lower Arterial PVR Without Exercise? Order Date:06/15/23?- Complete by?06/15/23 Vital Signs Height Weight BMI Blood Pressure / Temperature Pulse Rate Respiratory Rate 02 Sat Mode of Delivery / You can now view a summary of your hospital visit from the comfort of your home through a free online portal called [employer]. [employer] is a website that allows you to securely view your medical information including discharge summary, medications and follow-up visits. ??You can alsosend a secure electronic message to your doctor???s office to request appointments, renew medications or just ask a question. You can enroll at [email or web address] or register during your next office [...] care provider, you may find a [facility] provider by calling [employer] Information Link at [phone]. [facility], in keeping with [facility] guidance, no longer requires face masks [...] Personnel Name: Luke MOORE, Santana Blanco Position: [facility] Outreach Member Role: PCP Address: Address: [address] [place] [address] - [address] [facility], [place] [address]- Care Team Related Persons Name: JUSTA MALLOY Address: home [address] [place] [address] Name: STEPHIE DUMONT Address: [place] [address]
--- OUTSIDE RECORDS SUMMARY | 2023-07-23 11:07 | XMS_ITS | Continuity of Care Document ---
Author Organization [facility] Address [address] [place] [address]- Care Team Providers Care Body Masker Name Role Phone Luke MOORE, Santana Blanco Primary Care Physician En[place] [facility] Date(s): 07/09/23 - 07/16/23 [facility] [address] [place], [place] [address] Attending Physician: Anibal MOORE, Bo Singh Referring Physician: Darrell MOORE, Nomi Jeffries Allergies, Adverse Reactions, Alerts Substance Reaction Severity Status doxycycline genitals turned black Active Immunizations Given and Recorded Vaccine Date Status Refusal Reason influenza virus vaccine, inactivated 12/25/19 Give n Medications aspirin 81 mg oral delayed release tablet 81 mg, 1, tablet, By Mouth, Daily, # 30 tablet, Refills 0, Tot. Refills 0, Maintenance, 12/27/19 12:45:00 EDT, Route to Pharmacy Electronically, [facility], 175, cm, 12/27/19 9:04:00 [...] Maintenance,12/27/19 12:46:00 EDT, Route to Pharmacy Electronically, [facility], 175, cm, 12/27/19 9:04:00 [...] 12/27/19 12:46:00 EDT, Route to Pharmacy Electronically, [facility], 175, cm, 12/27/19 9:04:00 [...] 1Outside Source Comment: Overview: LVEF December 2019 [facility] 30-35% with inferior wall and basal [...] this year. Continue statin at current dose. Vital Signs Most recent to oldest [Reference Range]: 1 Height 175 cm (07/09/23 10:12 AM) Weight 77.2 kg (07/09/23 10:12 AM) Oxygen Saturation [94-100 %] 100 % (07/09/23 10:12 AM) Pulse Rate [55-90 bpm] 50 bpm *L* (07/09/23 10:12 AM) Body Mass Index [18.5-24.99 kg/m2] 25.21 kg/m2 *H* (07/09/23 10:12 AM) Blood Pressure [90-138/55-84 mm Hg] 153/ 71mm Hg *H* (07/09/23 10:12 AM) Respiratory Rate [16-30 br/min] 18 br/mi n (07/09/23 10:12 AM) Mode of Delivery (Oxygen) Room air (07/09/23 10:12 AM) Blood pressure sites Arm, left (07/09/23 10:12 AM) Weight Obtained Via Standing scale (07/09/23 10:12 AM) Social History Social History Type Response Smoking Status Cigars or pipes but not daily within last 30 days;Former smoker, quit more than 30 days ago; Type: Cigarettes entered on: 06/15/23 Sex Patient Care team information Care Team Personnel Name: Santana Butler MD Position: [facility] Outreach Member Role: PCP Address: Address: [address] [place] [address] - [address] [employer] [place] [address]- Care Team Related Persons Name: JUSTA MALLOY Address: home [address] [place] [address] Name: STEPHIE DUMONT Address: [place] [address]
--- OUTSIDE RECORDS SUMMARY | 2023-07-23 11:07 | XMS_ITS | Continuity of Care Document ---
Author Organization [facility] Address Unknown Care Team Providers Care Chemistry Physics Teacher Name Role Phone Santana Butler MD Primary Care Phys[id number] Date(s): 09/24/20 - 01/22/21 [facility] Attending Physician: Matthew King MD Admitting Physician: Matthew King MD Referring Physician: Santana Butler MD Allergies, [...] 12/27/19 12:45:00 EDT, Route to Pharmacy Electronically, [facility], 175, cm, 12/27/19 9:04:00 [...] 12/27/19 13:08:00 EDT, Route to Pharmacy Electronically, [facility], 175, cm, 12/27/19 9:04:00 [...] Maintenance,12/27/19 12:46:00 EDT, Route to Pharmacy Electronically, [facility], 175, cm, 12/27/19 9:04:00 EDT, Height, 93, kg, 12/24/19 9:59:00 EDT,... Start Date: 12/27/19 Status: Ordered spironolactone 25 mg oral tablet 25 mg, 1, tablet, By Mouth, Daily, # 30 tablet, Refills 0, Tot. Refills 0, Maintenance, 12/27/19 12:46:00 EDT, Route to Pharmacy Electronically, [facility], 175, cm, 12/27/19 9:04:00 EDT, Height, 93, kg, 12/24/19 9:59:00 EDT, Dry Weight Start Date: 12/27/19 Status: Ordered
--- OUTSIDE RECORDS SUMMARY | 2023-07-23 11:07 | XMS_ITS | Continuity of Care Document ---
Author Organization [facility] Address [address] [place] [address]- Care Team Providers Care Patient Liaison Name Role Phone Luke MOORE, Santana Blanco Primary Care Physician Encounter [facility] Date(s): 03/06/23 - 05/05/23 [facility] [address] [place], [place] [address] Attending Physician: Anibal MOORE, Bo Singh [...] 12/27/19 12:45:00 EDT, Route to Pharmacy Electronically, [facility], 175, cm, 12/27/19 9:04:00 [...] 12/27/19 13:08:00 EDT, Route to Pharmacy Electronically, [facility], 175, cm, 12/27/19 9:04:00 [...] 12:46:00 EDT, Route to Pharmacy Electronically, [facility], 175, cm, 12/27/19 9:04:00 EDT, Height, [...] 12/27/19 12:46:00 EDT, Route to Pharmacy Electronically, [facility], 175, cm, 12/27/19 9:04:00 [...] 1Outside Source Comment: Overview: LVEF December 2019 [facility] 30-35% with inferior wall and [...] Personnel Name: Luke MOORE, Santana Blanco Position: [facility] Outreach Member Role: PCP Address: Address: [address] [place] [address] - [address] [employer] [place] [address]- Care Team Related Persons Name: JUSTA MALLOY Address: home [address] [place] [address] Name: STEPHIE DUMONT Address: [place] [address]
--- OUTSIDE RECORDS SUMMARY | 2023-07-23 11:07 | XMS_ITS | Continuity of Care Document ---
Author Organization [facility] Address Unknown Care Team Providers Care Vocational Rehabilitation Consultant Name Role Phone Luke MOORE, Santana Blanco Primary Care Physician [phone] Encounter [facility] Date(s): 08/04/21 - 09/03/21 [facility] Attending Physician: Trina White Admitting Physician: Trina White Referring Physician: Trina White Allergies, Adverse Reactions, Alerts Substance Reaction Severity [...] 12/27/19 12:45:00 EDT, Route to Pharmacy Electronically, [facility], 175, cm, 12/27/19 9:04:00 [...] 12/27/19 13:08:00 EDT, Route to Pharmacy Electronically, [facility], 175, cm, 12/27/19 9:04:00 [...] Maintenance,12/27/19 12:46:00 EDT, Route to Pharmacy Electronically, [facility], 175, cm, 12/27/19 9:04:00 EDT, Height, [...] 12/27/19 12:46:00 EDT, Route to Pharmacy Electronically, [facility], 175, cm, 12/27/19 9:04:00 [...]
--- OUTSIDE RECORDS SUMMARY | 2023-07-23 11:07 | XMS_ITS | Continuity of Care Document ---
Author Organization [facility] Address [address] [place] [address]- Care Team Providers Care Toggle Press Operator Name Role Phone Luke MOORE, Santana Blanco Primary Care Physician [phone] Encounter [facility] Date(s): 12/23/19 - 12/27/[address] [address]- [facility] Encounter Diagnosis New onset of congestive heart failure(Final) - 12/23/19 Discharge Disposition: A-D/C Home Attending Physician: Dimas Mcgrath MD Admitting Physician: Patti Harvey DO Referring Physician: Not on Staff, Referring MD Allergies, Adverse Reactions, Alerts Substance Reaction [...] 12/27/19 12:45:00 EDT, Route to Pharmacy Electronically, [facility], 175, cm, 12/27/19 9:04:00 [...] 12/27/19 13:08:00 EDT, Route to Pharmacy Electronically, [facility], 175, cm, 12/27/19 9:04:00 [...] Maintenance,12/27/19 12:46:00 EDT, Route to Pharmacy Electronically, [facility], 175, cm, 12/27/19 9:04:00 EDT, Height, 93, kg, 12/24/19 9:59:00 EDT,... Start Date: 12/27/19 Status: Ordered spironolactone 25 mg oral tablet 25 mg, 1, tablet, By Mouth, Daily, # 30 tablet, Refills 0, Tot. Refills 0, Maintenance, 12/27/19 12:46:00 EDT, Route to Pharmacy Electronically, [facility], 175, cm, 12/27/19 9:04:00 EDT, Height, 93, kg, 12/24/19 9:59:00 EDT, Dry Weight Start Date: 12/27/19 Status: Ordered Results Radiology Reports * Exam Date Time Procedure Performing Provider Status 12/23/19 1:09 PM Chest 2 Views Frontal and Lat Braeden , Goergina; Auth (Verified) Notes: (Chest 2 Views Frontal and Lat) Reason For Exam: Shortness of Breath RESULT: Chest 2 Views Frontal and Lat Chest 2 Views Frontal and Lat Hx of Present Illness: pt reports 3 days of sinus congestion, SOB dry cough and chest discomfort - sts the chest discomfort is worsened upon exertion, it changes to a pressure when I exert myself. denies fevers, NVD.; Reason: Shortness of Breath; Clinical Question(s): Pneumonia; Special Instructions: This is a protocol film and radiologist should call any findings to the Charge Nurse COMPARISON: None. FINDINGS: LINES AND TUBES: None. LUNGS AND PLEURA: Small bilateral pleural effusions and adjacent atelectasis. Prominence of the pulmonary vasculaturesuggesting possible pulmonary edema. No pneumothorax. HEART, MEDIASTINUM AND SHAN: Heart is normal in size. Normal mediastinal and hilar contour. BONES AND SOFT TISSUES: No acute abnormality. IMPRESSION: Small bilateral pleural effusions. WSN: [id number] Ordering Physician: Lali Paula Dictated By: Aris Palacios MD Dictated Date/Time: 12/23/19 1:23 pm Reviewed By: Aris Palacios MD Signed By: Aris Palacios MD Signed Date/Time: 12/23/19 1:23 pm Transcribed By: SUGAR Transcribed Date/Time: 12/23/19 1:22 pm Vital Signs Most recent to oldest [Reference Range]: 1 2 3 Height 175 cm (12/27/19 9:04 AM) 175 cm (12/27/19 2:10 AM) 175 cm (12/26/19 10:00 PM) Weight 80.2 kg (12/27/19 6:51 AM) 84.5 kg (12/26/19 6:40 AM) 85.7 kg (12/26/19 3:31 AM) Oxygen Saturation [94-100 %] 100 % (12/27/19 9:04 AM) 98 % (12/27/19 2:10 AM) 98 % (12/26/19 10:00 PM) Pulse Rate [55-90 bpm] 56 bpm (12/27/19 9:04 AM) 54 bpm *L* (12/27/19 2:10 AM) 60 bpm (12/26/19 10:00 PM) Blood Pressure [90-138/55-84 mm Hg] 159/74mm Hg *H* (12/27/19 9:35 AM) 159/74mm Hg *H* (12/27/19 9:04 AM) 149/72mm Hg *H* (12/27/19 2:10 AM) Respiratory Rate [16-30 br/min] 18 br/min (12/27/19 9:04 AM) 18 br/min (12/27/19 2:10 AM) 18 br/min (12/26/19 10:00 PM) Temperature [96.8-100.4 DegF] 97.2 DegF (12/27/19 9:04 AM) 97.0 DegF (12/27/19 2:10 AM) 96.7 DegF *L* (12/26/19 10:00 PM) Mode of Delivery (Oxygen) Room air (12/27/19 9:04 AM) Room air (12/27/19 2:10 AM) Room air (12/26/19 10:00 PM) Blood pressure sites Arm, left (12/27/19 9:04 AM) Arm, left (12/27/19 2:10 AM) Arm, left (12/26/19 10:00 PM) Temperature Route Temporal (12/27/19 9:04 AM) Temporal (12/27/19 2:10 AM) Temporal (12/26/19 10:00 PM) Dry Weight 93 kg (12/24/19 7:15 AM) Weight Obtained Via Bed scale (12/27/19 6:51 AM) Bed scale (12/26/19 6:40 AM) Bed scale (12/25/19 6:25 AM)
[2023-07-23 13:17] VITALS: BMI 25.5
[2023-07-23 13:23] VITALS: PULSE 49; RESP 18; TEMP 36.4; O2SAT 100
[2023-07-23] MEDS: Lactated Ringers 500 ML 50 ML IV (13:51)
[2023-07-23] MEDS: Tetracaine HCl/PF 0.5% Oph Sol 4 ML DROPS 1 DROP EYE-RIGHT (13:53)
[2023-07-23] MEDS: Ketorolac Tromethamine 0.5% Op 10 ML DROPS 1 DROP EYE-RIGHT ×3 (13:53→13:57)
[2023-07-23] MEDS: Phenylephrine HCL 2.5% Oph SoL 2 ML BOTTLE 1 DROP EYE-RIGHT ×3 (13:53→13:57)
[2023-07-23] MEDS: Tropicamide 1 % Ophth Sol 3 ML BTL 1 DROP EYE-RIGHT ×3 (13:53→13:57)
[2023-07-23] MEDS: Cyclopentolate 1 % Ophth Sol 2 ML DRPBTL 1 DROP EYE-RIGHT ×3 (13:54→13:58)
--- NOTE | 2023-07-23 14:22 | MHC.SHP ---
Pre-Procedural Eval Section A - 24 Hr Update-Section A only Date of Service: 07/23/23 The patient is an INPATIENT: No Changes since office visit: No Cold of Flu in the past 2 weeks, No New Medical Problems, No Changes in Medication and No Patient answered all questions The patient has been examined within 24 hours of the surgical procedure. The History & Physical has been completed within 30 days and I have reviewed it.: Yes Section B - Complete if H&P > 30 days Chief Complaint: Age-related nuclear cataract, right eye Allergies: Allergies Allergy/AdvReac Type Severity Reaction Status Date / Time doxycycline Allergy Intermediate discoloration Verified 07/18/23 08:54 of genitals Plan Diagnosis/Plan: Unchanged I have reviewed the history and physical and performed a pertinent physical examination on my patient. No changes have occurred unless specified. Time Spent With Patient Time: Total time managing care of this patient today ____ minutes.
--- NOTE | 2023-07-23 14:23 | P.PCNO_ITS ---
Ophthalmology Procedure Procedure Date of Service: 07/23/23 Ophthalmology Viscoelastic: Healon Duet Dual Pack Pro Ophthalmology Lenses: IOL Acrysof MP - MA60AC (20.5) Procedure Notes: PREOPERATIVE DIAGNOSIS: Decreased visual acuity right eye secondary to cataract POSTOPERATIVE DIAGNOSIS: Same PROCEDURE: Right cataract extraction with intraocular lens insertion SURGEON: Nomi Ramírez M.D. ANESTHESIA: Topical/MAC ESTIMATED BLOOD LOSS: None COMPLICATIONS: None After obtaining informed consent, the patient was brought to the operating room suite and placed in the supine position. After adequate sedation per anesthesia, topical drops of Tetracaine were given to the right eye. The eye was then prepped and draped in the usual sterile fashion. The operating room microscope was then positioned over the operative eye and a lid speculum placed. A paracentesis was created. Viscoelastic was then instilled into the anterior chamber. A three plane incision was then created temporally, utilizing a 2.85 mm keratome. Capsulotomy forceps were then utilized to create a circular tear capsulotomy. Hydrodissection and hydrodelineation were carried out until adequate mobilization of the nucleus occurred. Phacoemulsification was then utilized to remove the dense central nu cleus followed by removal of the cortical material utilizing the automated aspiration irrigation unit. Viscoelastic was instilled into the posterior capsular bag followed by placement of a posterior chamber intraocular lens without difficulty. The residual Viscoelastic was then removed utilizing the automated IA machine. The wound was checked and found to be watertight. The patient tolerated the procedure well and the lid speculum was removed. Intracameral injection of Vigamox 0.1 mL followed by a subtenon injection of Kenalog-40 0.2 mL were administered. The patient will be seen in the a.m.
[2023-07-23 14:54] VITALS: BP 188/69; PULSE 52; RESP 12; TEMP 36.8; O2SAT 100
[2023-07-23 15:09] VITALS: BP 187/67; PULSE 48; RESP 14; TEMP 36.7; O2SAT 100
== END 2023-07-23 15:42 | disposition home or self-care (01) ==
PROVIDERS: PCP Internal Medicine; Visit Provider Ophthalmology
PROC: (CPT 66985; principal; 2023-07-23 13:00)
DX: H25.11 Age-related nuclear cataract, right eye (principal); H54.7 Unspecified visual loss; H35.3230 Exudative age-related macular degeneration, bilateral, stage unspecified; H35.433 Paving stone degeneration of retina, bilateral; I11.0 Hypertensive heart disease with heart failure; I50.9 Heart failure, unspecified; Z79.899 Other long term (current) drug therapy; Z88.1 Allergy status to other antibiotic agents; F17.290 Nicotine dependence, other tobacco product, uncomplicated
CPT/HCPCS: 66984; J2250; J3010; J3301; V2630

== ENCOUNTER 2023-08-29 08:58 | Outpatient (REF) | payer MEDICARE, SELFPAY ==
[2023-08-29 10:56] LABS: Anion Gap 16 (12-20); Blood Urea Nitrogen 43 mg/dL (9-16); Calcium 9.8 mg/dL (8.4-10.2); Carbon Dioxide 25 mmol/L (22-29); Chloride 89 mmol/L (96-108); Estimated Glomerular Filt Rate 58; Potassium 4.9 mmol/L (3.3-5.1); Sodium 125 mmol/L (135-145)
== END 2023-08-29 08:59 | disposition home or self-care (01) ==
LOC: HO.10HDL 08:58
PROVIDERS: Visit Provider Internal Medicine Nephrology
DX: E87.1 Hypo-osmolality and hyponatremia (principal)
CPT/HCPCS: 36415; 80051; 82310; 82565; 84520

== ENCOUNTER 2024-04-18 09:36 | Outpatient (REF) | payer MEDICARE, SELFPAY ==
[2024-04-18 11:19] LABS: Alanine Aminotransferase 28 U/L (0-40); Albumin Level 4.4 g/dL (3.5-5.0); Alkaline Phosphatase 75 U/L (39-117); Anion Gap 13 (12-20); Aspartate Amino Transferase 28 U/L (5-37); Bilirubin Total 0.7 mg/dL (0.0-1.0); Blood Urea Nitrogen 91 mg/dL (9-16); Calcium 9.7 mg/dL (8.4-10.2); Carbon Dioxide 26 mmol/L (22-29); Chloride 98 mmol/L (96-108); Estimated Glomerular Filt Rate 48; Glucose Random 186 mg/dL (60-115); Potassium 4.6 mmol/L (3.3-5.1); Sodium 132 mmol/L (135-145); Total Protein 7.4 g/dL (6.5-8.0)
== END 2024-04-18 09:37 | disposition home or self-care (01) ==
LOC: HO.10HDL 09:36
PROVIDERS: Visit Provider Internal Medicine
DX: N17.8 Other acute kidney failure (principal)
CPT/HCPCS: 36415; 80053

== ENCOUNTER 2024-05-16 10:29 | Outpatient (REF) | payer MEDICARE, SELFPAY ==
[2024-05-16 11:43] LABS: Alanine Aminotransferase 26 U/L (0-40); Albumin Level 4.3 g/dL (3.5-5.0); Alkaline Phosphatase 78 U/L (39-117); Anion Gap 14 (12-20); Aspartate Amino Transferase 28 U/L (5-37); Bilirubin Total 0.7 mg/dL (0.0-1.0); Blood Urea Nitrogen 82 mg/dL (9-16); Calcium 9.3 mg/dL (8.4-10.2); Carbon Dioxide 24 mmol/L (22-29); Chloride 99 mmol/L (96-108); Estimated Glomerular Filt Rate 50; Glucose Random 112 mg/dL (60-115); Potassium 4.4 mmol/L (3.3-5.1); Sodium 133 mmol/L (135-145); Total Protein 7.5 g/dL (6.5-8.0)
--- OUTSIDE RECORDS SUMMARY | 2024-05-16 11:59 | XMS_ITS | Clinical Summary ---
Author Organization [employer] Address [address] [place] [address] Care Team Providers Care Robotics Engineer Name Role Phone Unavailable Primary Care Provider Unavailabl e Allergies Active Allergy Reactions Criticality Noted Date Comments Ammonium Lactate (Obsolete) Other 10/24/2021 Doxycycline Other,Unknown 10/24/2021 Other Reaction(s): genitals turned black Medications amitriptyline (Elavil) 10 MG tablet TAKE 1 TAB BY MOUTH AT BEDTIME NEEDED INCREASE BY 1 TAB/NIGHT/WEE K UP TO 40 MG DAILY AT BEDTIME 03/23/2023 Active atorvastatin (Lipitor) 40 MG tablet Take 1 tablet by mouth Once per day. 06/05/2011 Active aspirin 81 MG EC tablet Take 1 tablet by mouth Once per day. 12/27/2019 Active furosemide (Lasix) 20 MG tablet Take 1 tablet by mouth 2 times daily. Active gabapentin (Neurontin) 100 MG capsule TAKE 1 CAPSULE AT BEDTIME ,INCREASE BY 1 CAPSULE EVERY OTHER DAY NEEDED UP TO 3 CAPS 3X A DAY 07/09/2023 Active lisinopril 20 MG tablet Take 1 tablet by mouth Once per day. 06/05/2011 Active metoprolol succinate XL (Toprol-XL) 100 MG 24 hr tablet Take 1 tablet by mouth Once per day. 12/27/2019 Active tamsulosin (Flomax) 0.4 MG 24 hr capsule Take 1 capsule by mouth 2 times daily. 06/05/2011 Active spironolactone (Aldactone) 25 MG tablet Take 1 tablet by mouth Once per day. 12/27/2019 Active Active Problems No known active problems Social History Tobacco Use Types Packs/Day Years Used Date Smoking Tobacco: Unknown Tobacco Cessation:Counseling Given: Not Answered Sex and Gender Information Value Date Recorded Sex Assigned at Male 04/26/2023 9:30 AM EST Legal Sex Male 9:28 AM EST Gender Identity Male 04/26/2023 9:30 AM EST Sexual Orientation Don't know 04/26/2023 9: 30 AM EST Plan of Treatment Health Maintenance Due Date Last Done Comments CT Colonography 1950 Colonoscopy 1950 Colorectal Cancer Screening 1950 Depression Screening 1950 FIT DNA/Cologuard 1950 FIT 1950 FOBT 1950 Lipid Panel 1950 SDOH Screening 1950 Sigmoidoscopy 1950 Alcohol/Substance Use Screening 1962 Hepatitis C Screening 1968 DTaP/Tdap/Td Vaccines (1 - Tdap) 1969 Pneumococcal Vaccine: 50+ Ye ars (1 of 1 - PCV) 2000 Zoster Vaccines (1 of 2) 2000 RSV Patients and Pa tients Aged 60 years or older (1 - Risk 60-74 years 1-dose series) 2010 COVID-19 Vaccine ( - 2023-2 5 season) 2023 Influenza Vaccine (#1) 2023 12/25/2019 Tobacco Screening 07/16/2024 07/17/2023 HIB Vaccines Aged Out No longer eligi ble based on patient's age to complete this topic HPV Vaccines Aged Out No longer eligi ble based on patient's age to complete this topic Hepatitis A Vaccines Aged Out No long er eligible based on patient's age to complete this topic Hepatitis B Vaccines Aged Out No long er eligible based on patient's age to complete this topic IPV Vaccines Aged Out No longer eligi ble based on patient's age to complete this topic Meningococcal Vaccine Aged Out No justin david eligible based on patient's age to complete this topic RSV under 20 months Aged Out No longe r eligible based on patient's age to complete this topic Rotavirus Vaccines Aged Out No longer eligible based on patient's age to complete this topic Insurance [facility] , [address] [address]
--- OUTSIDE RECORDS SUMMARY | 2024-05-16 11:59 | XMS_ITS | Continuity of Care Document ---
Author Organization [facility] ter Address [address] [place] [id number]- Care Team Providers Care Toll Mechanic Name Role Phone Luke MOORE, Santana Blanco Primary Care Physician [id number] Date(s): 05/01/24 - 05/01/[address] [address] Discharge Disposition: A-D/C Home Attending Physician: Meg Moulton MD Admitting Physician: Meg Moulton MD Referring Physician: Meg Moulton MD Encounter Type: Disch Daystay Allergies, Adverse Reactions, Alerts Substance Criticality Severity Reaction Reaction Severity Status doxycycline genitals turned black Active Immunizations Given and Recorded Vaccine Date Status Refusal Reason influenza virus vaccine, inactivated 12/25/19 Give n Medications aspirin 81 mg oral delayed release tablet 81 mg, 1, tablet, By Mouth, Daily, # 30 tablet, Refills 0, Tot. Refills 0, Maintenance, 12/27/19 12:45:00 PM EDT, Route to Pharmacy Electronically, [facility], 175, cm, 12/27/19 9:04:00EDT, Height, 93, kg, 12/24/19 9:59:00 EDT, Dry Weight Start Date: 12/27/19 Status: Ordered Quantity: 30.0 Unit: tablet Repeat number: 1 Flomax 0.4 mg oral capsule 1 capsule = 0.4 mg, By Mouth, 2 times a day, # 30 capsule, 0 Refills, Maintenance, 06/05/11 2:47:50 PM EDT, Capsule Start Date: 06/05/11 Status: Ordered Quantity: 30.0 Unit: capsule Repeat number: 1 folic acid 0.4 mg oral tablet 1 tablet = 0.4 mg, By Mouth, Daily, 0 Refills, Maintenance, 08/04/21 8:40:00 AM EDT, Partial fill upon patient request if the prescription is for a schedule II opioid drug. Start Date: 08/04/21 Status: Ordered Repeat number: 1 gabapentin 100 mg oral capsule TAKE 1 CAPSULE AT BEDTIME ,INCREASE BY 1 CAPSULE EVERY OTHER DAY NEEDED UP TO 3 CAPS 3X A DAY Start Date: 07/09/23 Status: Ordered Repeat number: 1 Lipitor 40 mg oral tablet 1 tablet = 40 mg, By Mouth, Daily, # 30 tablet, 0 Refills, Maintenance, 06/05/11 2:48:33 PM EDT, Tablet Start Date: 06/05/11 Status: Ordered Quantity: 30.0 Unit: tablet Repeat number: 1 lisinopril 20 mg oral tablet 1 tablet = 20 mg, By Mouth, Daily, # 30 tablet, 0 Refills, Maintenance, 06/05/11 2:47:16 PM EDT, Tablet Start Date: 06/05/11 Status: Ordered Quantity: 30.0 Unit: tablet Repeat number: 1 metoprolol 100 mg oral tablet, extended release 100 mg, 1, tablet, By Mouth, Daily at bedtime, # 30 tablet, Refills 0, Tot. Refills 0, Maintenance,12/27/19 12:46:00 PM EDT, Route to Pharmacy Electronically, [facility], 175, cm, 12/27/19 9:04:00 EDT, Height, 93, kg, 12/24/19 9:59:00 EDT, Dry Weight Start Date: 12/27/19 Status: Ordered Quantity: 30.0 Unit: tablet Repeat number: 1 NuLYTELY [place] oral powder for reconstitution See Instructions, as directed by office, # 1 each, 0 Refills, Maintenance, 09/27/23 12:57:00 PM EDT,REC Powder, [facility] #[id number], ok to sub for any gallon prep, 175, cm, 09/27/23 12:45:00 EDT, Height Start Date: 09/27/23 Status: Ordered Quantity: 1.0 Unit: each Repeat number: 1 PreserVision AREDS 2 2 times a day, 0 Refills, Maintenance, 08/04/21 8:41:00 AM EDT, Partial fill upon patient request ifthe prescription is for a schedule II opioid drug. Start Date: 08/04/21 Status: Ordered Repeat number: 1 spironolactone 25 mg oral tablet 25 mg, 1, tablet, By Mouth, Daily, # 30 tablet, Refills 0, Tot. Refills 0, Maintenance, 12/27/19 12:46:00 PM EDT, Route to Pharmacy Electronically, [facility], 175, cm, 12/27/19 9:04:00EDT, Height, 93, kg, 12/24/19 9:59:00 EDT, Dry Weight Start Date: 12/27/19 Status: Ordered Quantity: 30.0 Unit: tablet Repeat number: 1 torsemide 10 mg oral tablet 1 tablet = 10 mg, By Mouth, Daily, 0 Refills, Maintenance, 08/04/21 8:39:00 AM EDT, Partial fill upon patient request if the prescription is for a schedule II opioid drug. Start Date: 08/04/21 Status: Ordered Repeat number: 1 Vitamin B12 1000 mcg oral tablet 1 tablet = 1,000 mcg, By Mouth, Daily, 0 Refills, Maintenance, 08/04/21 8:41:00 AM EDT, Partial fillupon patient request if the prescription is for a schedule II opioid drug. 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 Continue statin at current dose. 4s/p partial colon resection 1999 Procedures Procedure Date Related Diagnosis Body Site Status Colonoscopy 05/01/24 Completed Vital Signs Most recent to oldest [Reference Range]: 1 2 3 Height 172.7 cm (05/01/24 8:03 AM) Weight 73.5 kg (05/01/24 8:03 AM) Oxygen Saturation [94-100 %] 100 % (05/01/24 9:57 AM) 100 % (05/01/24 9:46 AM) 100 % (05/01/24 9:40 AM) Pulse Rate [55-90 bpm] 57 bpm (05/01/24 8:03 AM) Body Mass Index [18.5-24.99 kg/m2] 24.64 kg/m2 (05/01/24 8:03 AM) Blood Pressure [90-138/55-84 mm Hg] 137/58mm Hg (05/01/24 9:57 AM) 135/52mm Hg (05/01/24 9:46 AM) 122/53mm Hg (05/01/24 9:40 AM) Respiratory Rate [16-30 br/min] 13 br/min *L* (05/01/24 9:57 AM) 13 br/min *L* (05/01/24 9:46 AM) 13 br/min *L* (05/01/24 9:40 AM) Temperature [96.8-100.4 DegF] 97.5 DegF (05/01/24 9:40 AM) 97.9 DegF (05/01/24 8:03 AM) Mode of Delivery (Oxygen) Room air (05/01/24 9:57 AM) Room air (05/01/24 9:46 AM) Room air (05/01/24 9:40 AM) Blood pressure sites Arm, left (05/01/24 9:57 AM) Arm, left (05/01/24 9:46 AM) Arm, left (05/01/24 9:40 AM) Temperature Route Temporal (05/01/24 9:40 AM) Temporal (05/01/24 8:03 AM) Dry Weight 73.5 kg (05/01/24 8:03 AM) Weight Obtained Via Patient/family state d (05/01/24 8:03 AM) Dry Weight Obtained Via Patient/family s tated (05/01/24 8:03 AM) Social History Social History Type Response Smoking Status Cigars or pipes but not daily within last 30 days;Former smoker, quit more than 30 days ago; Type: Cigarettes entered on: 06/15/23 Sex Sex Representation Male (finding) Note * Gloria Ledezma RN: PERFORM Event Display: Discharge/Transfer Note Hospital Authored Date: [id number] Nursing Discharge Note Entered On: 05/01/2024 9:51 EST Performed On: 05/01/2024 9:51 EST by Gloria Ledezma RN Nursing Discharge Note 2 Discharge Time : 05/01/2024 10:13 EST Patient Left Unit Via : Wheelchair Patient Accompanied Off Unit with : Significant other DC Instructions Provided & Signed by Pt : Yes Patient Understands D/C Instructions : Yes Patient Instructions Discharge Signed : Yes Did Pt have Specialty Bed or Wound Vac : No Gloria Ledezma RN - 05/01/2024 10:23 EST Discharge Level of Care at Discharge : Home/Senior Living/Foster Care Gloria Ledezma RN - 05/01/2024 9:51 EST * Gloria Ledezma RN: PERFORM Event Display: Patient Education/Instruction Authored Date: [id number] Surgery Adult Discharge Instructions [address] [id number] Name: SARTHAK MALLOY : 1950?? Visit: 05/01/2024 07:22?? Current Date: 05/01/2024 09:51 ?? Account: [id number]?? Surgery Discharge Instructions We would like to thank you for allowing us to assist you with your healthcare needs. The following includes patient education materials and information regarding your injury/illness. Our entire staffstrives to provide an excellent experience for our patients and their families. PLEASE ENSURE YOU FOLLOW-UP PER THE INSTRUCTIONS BELOW! ?? YOUR OPINION IS IMPORTANT TO US! Please complete the survey you may receive by mail or email. Your feedback will be used to make improvements to the healthcare experiences of our patients and their families. Surveys are administered by [employer] ?? If further treatment with your primary care physician or another doctor is recommended, it is important for you to keep the appointment. Call your primary care physician or return to the Emergency Department immediately if your condition worsens, fails to improve, or new symptoms develop. If you need to find a doctor, you can call [facility] for a referral at [phone] or toll free at [phone]) or log in to [email or web address].. ?? [facility], in keeping with [facility] guidance, no longer requires face masks for staff, patientsor visitors in most situations. Similiar to time spent indoors at other locations, there is the chance that you were exposed to repiratory viruses during your time with us (such as flu or COVID-19). If you develop symptoms concerning for a viral respiratory infection, please seek testing (and treatment if indicated) from your medical provider or home test kit. ?? You can view and manage your care through the patient portal or by using a health care tamika of your choosing. [employer] is a website that allows you to securely view your medical information including your hospital discharge summary, office visit summaries, medications and follow-up visits. You can also request appointments, renew medications, and request access to your medical information using a health care tamika of your choosing, or just ask a question. You are entitled to know the individuals who participated in your treatment. This information is available within your medical record and will be provided upon your request. You can enroll at [email or web address] or register d uring your next office visit. You have been discharged from [facility], Patient Care Unit: ENDO??. If you have any questions regarding these instructions after you leave, please call us and we will be happy to assist you. [facility] Your Care Team Attending Physician Meg Moulton MD?? Discharging Providers Meg Moulton MD Reason for Admission HX OF COLON CANCER 1999 Primary Care Provider Luke MOORE, Santana Blanco? Advance Directive Health Care Proxy on File No What to do next Instructions From Your Doctor ?? Orders?? Daystay Protocol, ??05/01/24 8:44:00 EST?? Scheduled Follow-Up Appointments Sunday 4:00 PM EDT ?? With: Angie Garnica NP Where: [facility] [address], [address] [place] [id number]- Status: Pending Sunday 7:45 AM EDT ?? Where: [facility] [address] [place] [address]- Status: Pending You Need to Schedule the Following Appointments Follow Up with??Follow up with primary care provider as needed Follow Up with??Santana Butler When:??In 0 days Where: [address] [place] [address] - [address] [facility], [facility] [place] [address]- [facility] (1) Discharge Medications SARTHAK MALLOY :1950 Visit Date:05/01/2024 Medications: Please continue your medications until treatment is completed or stopped by your provider. You may resume your daily prescription medications. Discuss any questions related to medications with your provider. What How Much When Instructions Next Dose Unchanged Aspirin (aspirin 81 mg oral delayed release tablet) 1 tab(s) Oral Daily Unchanged Atorvastatin (Lipitor 40 mg oral tablet) 1 tab(s) Oral Daily Unchanged Cyanocobalamin (Vitamin B12 1000 mcg oral tablet) 1 tab(s) Oral Daily Unchanged Folic Acid (folic acid 0.4 mg oral tablet) 1 tab(s) Oral Daily Unchanged Gabapentin (gabapentin 100 mg oral capsule) TAKE 1 CAPSULE AT BEDTIME ,INCREASE BY 1 CAPSULE EVERY OTHER DAY NEEDED UP TO 3 CAPS 3X A DAY ?? Unchanged Lisinopril (lisinopril 20 mg oral tablet) 1 tab(s) Oral Daily Unchanged Metoprolol (metoprolol 100 mg oral tablet, extended release) 1 tab(s) Oral Daily at Bedtime Unchanged Multivitamin With Minerals (PreserVision AREDS 2) Twice a day Unchanged PEG Electrolyte Solution (NuLYTELY [place] oral powder for reconstitution) See instructions as directed by office ?? Unchanged Spironolactone (spironolactone 25 mg oral tablet) 1 tab(s) Oral Daily Unchanged Tamsulosin (Flomax 0.4 mg oral capsule) 1 capsule Oral Twice a day Unchanged torsemide (torsemide 10 mg oral tablet) 1 tab(s) Oral Daily Allergies (NKA means No Known Allergies) doxycycline??(genitals turned black) Education Materials Below is the list of Educational Leaflet Providered with your Discharge Instructions. [employer] Patient Education - Surgery Medical Daystay Surgical Overnight Discharge Instructions?? [employer] Patient Education - Hemorrhoids Discharge Instructions?? [employer] Patient Education - Diverticulosis Discharge Instructions?? [employer] Patient Education - Colon Polypectomy Discharge Instructions?? Valuables and Belongings I fully understand and agree that [facility] accepts no responsibility for all my personal property including clothing, toilet articles, radios, jewelry, dentures, hearing aids, rings, money, or any other property that is in my possession or is brought to me after admission. I understand certain valuables may be placed in a hospital safe for a short period of time. I understand that the hospital is not liable for loss or damage due to accident, fire, or other natural occurrence while said property is in the safe. I accept full responsibility for any personal property that I keep with me, and will not hold the hospital responsible in case of loss or disappearance. I acknowledge that i have been encouraged to send valuables and belongings home. ? Other Discharge Information ? Case Management Discharge Plan?? Discharge Plan?? Discharge Level of Care at Discharge: Home/Senior Living/Foster Care ?? Pulmonary Rehab Status?? Pulmonary Rehab Discharge Status?? Respiratory Rate:??13 br/min??Low ? Common Emergency Awareness Tips IS IT A STROKE? Act FAST and Check for these signs: FACE Does the face look uneven? ARM Does one arm drift down? SPEECH Does their speech sound strange? TIME Call at any sign of stroke ?? Heart Attack Signs Chest discomfort: Most heart attacks involve discomfort in the center of the chest and lasts more than a few minutes, or goes away and comes back. It can feel like uncomfortable pressure, squeezing, fullness or pain. Discomfort in upper body: Symptoms can include pain or discomfort in one or both arms, back, neck, jaw or stomach. Shortness of breath: With or without discomfort. Other signs: Breaking out in a cold sweat, nausea, or lightheaded. Remember, MINUTES DO MATTER. If you experience any of these heart attack warning signs, call to get immediate medical attention! ?? Smoking can increase your chances of developing chronic health problems and can cause harmful effects to other family members in your house. If you smoke, you are strongly encouraged to quit. Please call [facility] at [phone] or [phone] ([phone]) or log in to [email or web address] for referrals to smoking cessation programs. ?? The National Suicide Prevention Hotline is available 09/10 if you or someone you know needs to find a reason to keep living. By calling 6-760-016-GamingTurf (0757) you'll be connected to a skilled, trained counselor at a crisis center in your area. SURGERY DISCHARGE INSTRUCTIONS SIGNATURE SARTHAK CARBALLO Location:[facility] Registration Date and Time:05/01/2024 07:22 EST Primary Care Physician: Santana Butler MD, Attending Physician: Saige MOORE, Meg, I SARTHAK MALLOY, have received the above patient education materials/instructions and have verbalized understanding. If ambulance or transport services are being used I further acknowledge being given a choice of service. ?? If you need to contact me, please call me at this number: . Patient/Jail Officer Name: Patient/Jail Officer Signature: Relationship to Patient: Witness Name/Signature: Date: * Gloria Ledezma RN: PERFORM, SIGN, VERIFY Event Display: Patient Education Handout Authored Date: [id number] * Gloria Ledezma RN: PERFORM Event Display: Patient Education Leaflets Authored Date: [id number] Surgery Medical Daystay Surgical Overnight Discharge Instructions ?? 295 Medical Daystay/Surgical Overnight Discharge Instructions ? Since your coordination and judgment may be altered by medication and/or anesthesia, a responsible adult must drive you home from the hospital. ? If you have received medication for pain or sedation while under our care, you should not drive, operate machinery, drink alcohol, or sign any legal documents for 24 hours.?? You should have someone with you at home tonight. ? Remain at home the day of discharge.?? You may be up and about unless otherwise instructed by your physician. ? You may resume your daily prescription medication schedule.?? Any depressant medication should be avoided for 24 hours unless otherwise instructed by your surgeon or anesthesiologist. ? Call your physician for a follow-up appointment.? If you experience unusual or severe pain not relied by your pain medication, excessive bleedingor drainage, persistent nausea and vomiting, excessive swelling or redness, foul odor from incisionsite or fever over 100.6F, you need to call your physician. ? A follow-up phone call by a nurse will be made the day after your procedure.?? If you have stayed with us over night, you will not be receiving a follow-up phone call. ? Nausea and vomiting are a common side effect of prescription pain medication.?? We recommend that pills are not taken on an empty stomach.?? While taking any prescription pain medication you should not drive or drink alcohol. ? * Gloria Ledezma RN: PERFORM Event Display: Patient Education Leaflets Authored Date: [id number] Hemorrhoids Discharge Instructions ?? 672 ??Hemorrhoids Discharge Instructions ??You must carefully read the Consumer Information Use and Disclaimer below in order to understand and correctly use this information?? About this topic Hemorrhoids are swollen veins in the rectum. Your rectum is where stool leaves your body. You may be able to see or feel your hemorrhoids outside of your body, but some hemorrhoids are inside of yourrectum and cannot be seen. Hemorrhoids can cause itching, pain, and bleeding. Being constipated or having hard stools can make your hemorrhoids worse.?? What care is needed at home? Ask your doctor what you need to do when you go home. Make sure??you ask questions if you do not understand what the doctor says. This??way you will know what you need to do. ??? Soak your bottomin a few inches of warm water for 10 to 15 minutes??at a time. You can do this 2 to 3 times each day. Do not add soap,??bubble bath, or anything to the water. ??? Use lqol-ewx-vrnkzwx medicines to treat your hemorrhoids. These??include ointments and creams to help with pain and swelling. You can??also use a product like witch tom to help dry out the skin in the area. ??? To help with constipation: ??? Use stool softeners when needed. ??? Eat high-fiber foods. These include whole grains, fruits, and??vegetables. ??? Drink plenty of water and other fluids each day. This helps to??keep your stools soft. ??? Set a regular schedule to try and have a bowel movement. Do??not ignore the urge to go to the bathroom. Don???t hold it in. ??? Give yourself plenty of time to have a bowel movement, but do not linger on the toilet either, by sitting and reading for a long time. ??? Do mild exercise each day like taking a walk. ??? Avoid heavy lifting or straining while the hemorrhoid is healing. ?? What follow-up care is needed? If your problem does not get better, other care may be needed. Your doctor may ask you to make visits to the office to check on your progress. Be sure to keep these visits.?? What drugs may be needed? The doctor may order drugs to: ??? Help with pain and swelling ??? Ease itching ??? Soften stools ?? Will physical activity be limited? Working out can help with digestion. It might help keep you from having hard stools. Ask your doctor about the best kind of exercise for you. ?? What problems could happen? You may have very bad bleeding. ??? Sometimes, treatments do not work. Some hemorrhoids are very??large. You might need surgery for either of these. ?? When do I need to call the doctor? You have a lot of bleeding from your rectum. ??? Your bowel movement looks like tar. ??? You are not able to pass stool because of pain from your??hemorrhoids. ??? Your pain gets worse and is nothelped by ktre-hcy-hexuoun??medicines, warm water, or your home care. ??? You have a fever of 100.4??F (38??C) or higher. ?? Teach Back: Helping You Understand The Teach Back Method helps you understand the information we are giving you. After you talk with the staff, tell them in your own words what you learned. This helps to make sure the staff has described each thing clearly. It also helps to explain things that may have been confusing. Before going home, make sure you can do these: ??? I can tell you about my condition. ??? I can tell you what may help ease my pain. ??? I can tell you what I will do if I have blood in my rectum. Where can I learn more?[employer]https://familydoctor.or g/condition/hemorrhoids/National Digestive Disease Information Clearinghousehttps://www.niddk.nih.go v/health-information/digestive-diseases/hemorrhoids/definition-factsLast Reviewed Ewto9939-25-11Yzleaaow Information Use and Disclaimer:This generalized information is a limited summary of diagnosis,treatment, and/or medication information. It is not meant to be comprehensive and should be used asa tool to help the user understand and/or assess potential diagnostic and treatment options. It does NOT include all information about conditions, treatments, medications, side effects, or risks thatmay apply to a specific patient. It is not intended to be medical advice or a substitute for the medical advice, diagnosis, or treatment of a health care provider based on the health care provider's examination and assessment of a patient???s specific and unique circumstances. Patients must speak with a health care provider for complete information about their health, medical questions, and treatment options, including any risks or benefits regarding use of medications. This information does not endorse any treatments or medications as safe, effective, or approved for treating a specific patient. [employer] and its affiliates disclaim any warranty or liability relating to this information or the use thereof. The use of this information is governed by the Terms of Use, available at??htt ps://www.[employer]/en/know/gzpgycjq-pirndkeelfboz-oxcpaPrtd Updated 05/11/21? * Gloria Ledezma RN: PERFORM Event Display: Patient Education Leaflets Authored Date: [id number] Diverticulosis Discharge Instructions ?? 680 Diverticulosis Discharge Instructions ??You must carefully read the Consumer Information Use and Disclaimer below in order to understand and correctly use this information?About this topicDiverticulosis is a problem of the large bowel or colon. The wall of the bowel becomes weak and pushes outward. They form balloon-like pouches called diverticula or tics. When you have hard stool, you strain to have a bowel movement. This raises the pressure in the bowel and causes pouches or bulges to form. Most often, they do not cause a problem. If they become infected, you have diverticulitis. If you have both bleeding and infection, it is diverticular disease.??What care is needed at home? Ask your doctor what you need to do when you go home. Make sure??you ask questions if you do not understand what the doctor says. ??? Eat more whole grains, vegetables, and fruits. ??? Do not wait to have a bowel movement. Go as soon as you have the??urge. ??? Drink 8 to 10 glasses of water each day. Talk to your doctor if you are??drinking less fluids due to a health problem. ??? Be active. Walk,garden, or do something active for 30 minutes or more on most days of the week. ??What follow-up care is needed?Your doctor may ask you to make visits to the office to check on your progress. Be sure to keep these visits.??What drugs may be needed?Most often with diverticulosis you will not need to take any drugs.??Will physical activity be limited?When you are in pain, you may need to rest in bed. To ease the pain, use a heat compress on your belly. This should last only for a few days.??What changes to diet are needed?Talk to your doctor about any changes you need to make to your diet.? You do not need to avoid seeds, nuts, corn, or other similar foods. ??? You will need to eat food rich in fiber and drink more water. o Eat 5 or more servings of fresh fruits and vegetables every day. o Eat 6 or more servings of whole-wheat grain breads and??cereals. ??? Try toget 25 to 30 grams of fiber every day. Read the labels to??learn how much fiber is in foods. ??? Donot drink coffee, tea, or beer, wine, and mixed drinks (alcohol). ??What problems could happen?You may develop diverticulitis, which may cause:? Pockets or pouches in your bowel may be infected or filled with pus. ??? Hole or tear in your bowel ??? Part of your bowel to become narrow ??? You to need surgery ??What can be done to prevent this health problem?The best way to keep from having diverticulosis is to keep your bowel movements soft and normal. To keep more pouches from forming:? Talk with your doctor about adding an lwhk-mwb-cjfgztg (OTC) fiber??product to keep your stools soft. ??? Limithow much pain drugs you take. Overuse of some pain drugs can??cause hard stools; talk with your doctor. ??? When do I need to call the doctor? Signs of infection. These include a fever of 100.4??F (38??C) or higher,??chills. ??? Mild pain or cramping in the lower part of the belly ??? A feelingof bloating in the belly ??? Belly pain that gets worse ??? Blood in your stool ??? Upset stomach or throwing up ??? Stools get too loose or too hard ??? Long-term hard stools ??Teach Back: Helping You UnderstandThe Teach Back Method helps you understand the information we are giving you. After you talk with the staff, tell them in your own words what you learned. This helps to make sure the staff has described each thing clearly. It also helps to explain things that mayhave been confusing. Before going home, make sure you are able to do these:? I can tell you abo ut my condition. ??? I can tell you what changes I need to make with my diet or drugs. ??? I can tell you what I will do if I have pain or cramping in my lower belly??or I have more belly pain. ??Where can I learn more???FamilyDoctor.orghttp://familydoctor.org/familydoctor/en/diseases-conditio ns/div erticular-disease.htmlNHShttps://www.nhs.uk/conditions/ssbswrnmbwne-ydkbhky-yzq- diverticulitis/LastReviewed Ctty7127-66-26Grwrahjp Information Use and Disclaimer:This generalized information is a limited summary of diagnosis, treatment, and/or medication information. It is not meant to be comprehensive and should be used as a tool to help the user understand and/or assess potential diagnostic and treatment options. It does NOT include all information about conditions, treatments, medications, side effects, or risks that may apply to a specific patient. It is not intended to be medical adviceor a substitute for the medical advice, diagnosis, or treatment of a health care provider based on the health care provider's examination and assessment of a patient???s specific and unique circumstances. Patients must speak with a health care provider for complete information about their health, medical questions, and treatment options, including any risks or benefits regarding use of medications. This information does not endorse any treatments or medications as safe, effective, or approved for treating a specific patient. [employer] and its affiliates disclaim any warranty or liabilityrelating to this information or the use thereof. The use of this information is governed by the Terms of Use, available at??https://www.[employer]/en/know/jsiemiib-mgtmqekartizn-ullhiVitm Updat ed 05/11/21? Patient Care team information Care Team Personnel Name: Santana Butler MD Position: [facility] Outreach Member Role: PCP Address: [address] [place] [address] Telecom: Care Team Related Persons Name: JUSTA MALLOY Name: STEPHIE DUMONT Insurance Providers Guarantor name: ROMAINE Health Plan Information #: 3 Payer: [facility] MEDICARE ADV HMO Member Number: [id number] Policy Number: NA Group Number: [id number] Health Plan Information #: 4 Payer: MEDEX Member Number: [id number] Policy Number: NA Group Number: [id number] Health Plan Information #: 1 Payer: MEDICARE PART B OUTPT Member Number: [id number] Policy Number: NA Group Number: NA Health Plan Information #: 2 Payer: MEDICARE HMO BLUE [id number] REPLC Member Number: [id number] Policy Number: NA Group Number: ROMAINE
--- OUTSIDE RECORDS SUMMARY | 2024-05-16 11:59 | XMS_ITS ---
[facility] Address [address] [place] [address] Care Team Providers Care Assistant Operator Name Role Phone Santana Butler MD Primary Care Provider Aris Macario Unavailable [phone] Allergies Allergen (clinical drug ingredient) Drug/Non Drug Allergy documented on EMR Reaction Allergy Type Onset Date Status hay fever (uncoded) Unknown Allergy Active doxycycline Doxycycline Unknown Drug Allergy Act jeremy REASON FOR VISIT At Risk Footcare, Painful Nail(s) aggrevated by shoes and causing difficulty standing/walking., Wart(s) Medications Medication SIG (Take, Route, Frequency, Duration) Notes Start Date End Date Status Lidocaine 5 % 1 application as needed Externally Three times a day for 30 days 09/07/2022 Not-Taking Indomethacin 50 MG 1 capsule with food or milk Orally Twice a day Not-Taking oxyBUTYnin Chloride ER 10 MG 1 tablet Orally Once a day Not-Taking Aspirin Active Metoprolol Tartrate 100 MG 1 tablet with food Orally Twice a day Not-Taking Tamsulosin HCl 0.4 MG 1 capsule Orally O nce a day Active Metoprolol Succinate 100 MG 1 capsule Orally Once a day Active Lisinopril Active Ammonium Lactate 12 % 1 application to affected area Externally to feet Twice a day for 30 days Active Torsemide Active Spironolactone Activ e PreserVision AREDS A ctive Gabapentin Active Folic Acid Active Atorvastatin Calcium 40 MG 1 tablet Oral ly Once a day Active Social History Tobacco Use: Social History Observation Description Date Details (start date - stop date) Former Smoker NA - NA Tobacco Use/Smoking Question Answer Notes Are you [...] Are you an other tobacco user? No Vital Signs Height 5ft 9in in 01/03/2024 Weight 162 lbs 01/03/2024 BMI 23.92 kg/m2 01/03/2024 Procedures Procedure Date Ordered Date Performed Result Body Sit e 86317-UFRBFGN NAIL, 6 OR MORE 01/03/2024 N/A 39724-Yfwf Destruction, 1-14 01/03/2024 N/A 53241-UKAO SKIN LESIONS, OVER 4 01/03/2024 N/A Encounters Encounter Location Date Provider Diagnosis [facility] [address] [address] 01/03/2024 Aris Torres Atherosclerosis of [place] artery of both lower extremities, with unspecified presence of clinical manifestation I70.203 ; Onychomycosis B35.1 ; Pain of toe of right foot M79.674 ; Pain of toe of left foot M79.675 ; Verruca pedis B07.0 and Right foot pain M79.671 Assessments Encounter Date Diagnosis (ICD Code) Assessment Notes Treatment Notes Treatment Clinical Notes Section Notes 01/03/2024 Atherosclerosis of [place] artery of both lower extremities, with unspecified presence of clinical manifestation (ICD-10 - I70.203) 01/03/2024 Onychomycosis (ICD-10 - B35.1) 01/03/2024 Pain of toe of right foot (ICD-10 - M79.674) 01/03/2024 Pain of toe of left foot (ICD-10 - M79.675) 01/03/2024 Verruca pedis (ICD-10 - B07.0) Chronic 01/03/2024 Right foot pain (ICD-10 - M79.671) Plan Of Treatment Pending Test Test Name Order Date 30511-FMTRLMT NAIL, 6 OR MORE 01/03/2024 59113-Ezzd Destruction, 1-14 01/03/2024 42726-QPMK SKIN LESIONS, OVER 4 01/03/20 24 Next Appt Details Follow Up: prn, Reason: Procedure Notes * Category Sub-Category Detail Notes Wart Treatment Procedure Verrucae were de brided to pin-point bleeding margins with sterile 15 surgical blade, silver nitrate chemocautery applied, recomm. immune-boosting meds such as zinc, recomm. follow up with topical chemosurgical agents, Pt defers any other forms of tx - 74587 Debride Nail 6-10 Nail debridement Performance o f this nail treatment by a nonprofessional would put this patients foot and overall health at risk. Therefore, nail debridement was performed extensively to reduce/remove overall nail length, girth, thickness, subungual debris, and necrotic tissue, by manual and/or electrical means through the use of a nail nipper and/or dremel-type blanchard grinder operator, to a more viable healthy nail plate or bed tissue 6-10. Silver nitrate used for any petechial bleeding as necessary. Definitive antifungal treatment options have been reviewed and discussed with the patient. The patient chooses, no pharmaceutical tx - 80005 Keratoma Treatment Parring or Cutting o f Benign Hyperkeratotic Lesion(s) (-57) More than 4 Lesions - The Benign hyperkeratotic lesions, as described above were pared, and/or cut utilizing a sterile 15 blade, tissue nippers, and/or dremel - 27883 , Q8 Progress Notes * Anselmo MALLOY MDOB: [birth year] (73 yo M)Acc No.[id number]:01/03/2024 Progress Notes Patient:?Anselmo Malloy Shruthi Provider:?Aris Torres DPM :1950???Age:73 Y???Sex:Male Darrick e:01/03/2024 Address:[address] [place], [place] [id number] Pcp:Santana Butler MD Subjective: * Chief Complaints: * ???At Risk FootcarePainful N ail(s) aggrevated by shoes and causing difficulty standing/walking.Wart(s) * HPI: ???At Risk footcare:?Pt States Last PCP Visit:?Date?12/03/2023 * ROS:?General/Constitutional:?Nausea?denies.?Vomiting?denies.?Hunger Thirst?denies.?Loss appetite?denies.?Chills?denies.?Fatigue?denies.?Fever?denies.?Night Sweats?denies.?Unexplained weight loss?denies.?Unexplained weight gain?denies.?HEENTM:?Dentures?denies.?Dizziness?denies.?Glasses/contacts?admits.?Retinopathy?de nies.?Blurred/double vision?denies.?TMJ?denies.?Discharge/drainage?denies.?Implants?denies.?Sore throat?denies.?Dental implants?denies.?Hard of hearing ?denies.?Difficulty chewing/swallowing/speaking?denies.?Nose bleeds?denies.?Sore mouth?denies.?Respiratory:?On Oxygen?denies.?Pneumonia/pleurisy?denies.?Bronchitis?denies.?Emphysema?denies.?C oughing?denies.?Cough blood?denies.?Shortness of breath?denies.?Wheezing?denies.?Cardiovascular:?Pacemaker?denies.?MVP?denies.?WPW?denies.?CHF?denies.?Heart attack?denies.?Septal defect?denies.?Rapid beat?denies.?Chest pain ?denies.?Atrial Fib.?denies.?Murmur/Palpitations?denies.?Gastrointestinal:?Hemorrhoids?denies.?Stomach/Abdominal pain?denies.?Dark blood stool?denies.?Irritable bowel ?denies.?Constipation?denies.?Diarrhea?denies.?Hematology:?Swelling?admits.?Clots?denies.?Varicose Veins?denies.?Bruising?denies.?Bleeding problem?denies.?Genitourinary:?Blood urine?denies.?Frequent/Painfu/urination/bladder control?admits.?Kidney stones?denies.?Infection (UTI)?denies.?Nephropathy?denies.?sex trans dis (STD)?denies.?Prostate?admits.?Musculoskeletal:?Hammertoes?admits.?Bunions?admits.?Back Pain?denies.?Muscle Cramps/ Resting?denies.?Muscle cramps / walking?denies.?Generalized aches and pains?denies.?Weakness?denies.?Integ.:?Bui?denies.?Scars?denies.?Corns/calluses?admits.?Ingrown nails?admits.?Painful nails?admits.?Open Sores?denies.?Rashes?denies.?Neurologic:?Difficulty sleeping?denies.?Brain disorder?denies.?Numbness?denies.?Balance trouble?admits.?Confusion?denies.?Fainting/blackouts?denies.?Tingling?denies.?Tr emors?denies.? * Medical History:? * Surgical History:?back surge ry colon hand/wrist 05/10/17 * Hospitalization/Major Diagno stic Procedure:?Denies Past Hospitalization * Family History:?Mother: anabella brenner?Father: , diagnosed with Unspecified essential hypertension.?Spouse: alive.? * Social History:?Tobacco Use:?Tobacco Use/Smoking?Are you a:?former smoker ?When did you stop smoking??20 yrs ago ?Additional Findings: Tobacco Non-User?Current non-smoker ?Tobacco use other than smoking?Are you an other tobacco user??No ???Drugs/Alcohol:?Drugs?Have you used drugs other than those for medical reasons in the past 12 months??No ?Alcohol Screen?Did you have a drink containing alcohol in the past year??Yes ?How often did you have a drink containing alcohol in the past year??4 or more times a week (4 points) ?How many drinks did you have on a typical day when you were drinking in the past year??1 or 2 drinks (0 point) ?How often did you have 6 or more drinks on one occasion in the past year??Never (0 point) ?Points?4 ?Interpretation?Positive ???Miscellaneous:?Caffeine: yes, 1-2 cups per day. ?no Children. ?no Exercise. ?Marital status: . 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 * Medications:?TakingAspirin A torvastatin Calcium 40 MG Tablet 1 tablet Orally Once a dayFolic Acid Gabapentin PreserVision AREDS Spironolactone Lisinopril Metoprolol Succinate 100 MG Capsule ER 24 Hour Sprinkle 1 capsule Orally Once a dayTamsulosin HCl 0.4 MG Capsule 1 capsule Orally Once a dayTorsemide Ammonium Lactate 12 % Cream 1 application to affected area Externally to feet Twice a dayTaking Aspirin Taking Atorvastatin Calcium 40 MG Tablet 1 tablet Orally Once a dayTaking Folic Acid Taking Gabapentin Taking PreserVision AREDS Taking Spironolactone Taking Lisinopril Taking Metoprolol Succinate 100 MG Capsule ER 24 Hour Sprinkle 1 capsule Orally Once a dayTaking Tamsulosin HCl 0.4 MG Capsule 1 capsule Orally Once a dayTaking Torsemide Taking Ammonium Lactate 12 % Cream 1 application to affected area Externally to feet Twice a dayNot-Taking/PRNMetoprolol Tartrate 100 MG Tablet 1 tablet with food Orally Twice a dayoxyBUTYnin Chloride ER 10 MG Tablet Extended Release 24 Hour 1 tablet Orally Once a dayIndomethacin 50 MG Capsule 1 capsule with food or milk Orally Twice a dayLidocaine 5 % Ointment 1 application as needed Externally Three times a dayMedication List reviewed and reconciled with the patientNot-Taking/PRN Metoprolol Tartrate 100 MG Tablet 1 tablet with food Orally Twice a dayNot-Taking/PRN oxyBUTYnin Chloride ER 10 MG Tablet Extended Release 24 Hour 1 tablet Orally Once a dayNot-Taking/PRN Indomethacin 50 MG Capsule 1 capsule with food or milk Orally Twice a dayNot-Taking/PRN Lidocaine 5 % Ointment 1 application as needed Externally Three times a dayMedication List reviewed and reconciled with the patient * Allergies:?Leigha damon[Allergies Verified] Objective: * Vitals:?Ht:5ft 9in, Wt:162, BMI:23.92, Shoe size:10EEE, Ht-cm: 175.26 cm, Wt-k.48 kg. * Examination: ???Vascular: ?DP PULSES(B):? 0/4, B/L.?PT PULSES(B):? 0/4, B/L.?CAPILLARY FILL TIME:? delayed, all digits, B/L.?TROPHIC CONDITION-TEXTURE/ELASTICITY/TURGOR/HAIR GROWTH(B):? decreased, fragile, thin, shiny skin, with sparse to absent hair growth, B/L.?TEMPERTURE GRADIENT(C):? decreased, cool to cool, proximal to distal, B/L.?PIGMENTATION:? rubrous, B/L.?EDEMA(C):? 3/4, non-pitting, without aching pain, B/L, Leg(s), Ankle(s), Feet.?CLAUDICATION(C):?denies, B/L.?REST PAIN:?denies, B/L.?Nails: ?NAILS are:? Elongated, overgrown, dystrophic, lytic, greater than 3mm thick, discolored and friable with crumbly malodorous subungual debris, with pain on palpation, 1-5 B/L.?Dermatologic: ?SKIN FINDINGS:? Skin exam reveals Keratotic lesion(s) located at, Medial plantar, IPJ, TA, Medial plantar, IPJ, T5, SUB MTH (s), 1, B/L , SUB MTH (s), 5, B/L , Heel(s), B/L.?VERRUCA:?STILL, Reveals a Single , multi-loculated , mosaically patterned, round, raised, flat-topped, petechial bleeding papule(s), with cauliflower appearance and interruption of skin lines, pain to lateral compression, and size estimated at 7mm diameter, plantar Forefoot, RIGHT.? Assessment: * Assessment: 1.?Onychomycosis - B35.1?2.? Atherosclerosis of [place] artery of both lower extremities, with unspecified presence of clinical manifestation - I70.203?3.?Pain of toe of right foot - M79.674?4.?Pain of toe of left foot - M79.675?5.?Verruca pedis - B07.0, RIGHT, Chronic?6.?Right foot pain - M79.671? Plan: * Treatment: 2.?Atherosclerosis of [place] artery of both lower extremities, with unspecified presence of clinical manifestation?Procedure: 93863-RWGC SKIN LESIONS, OVER 4 3.?Verruca pedis?Procedure: 98228-Yngs Destruction, 1-14 * Procedures:?Debride Nail 6-10:?Nail debridement?Performance of this nail treatment by a nonprofessional would put this patients foot and overall health at risk. Therefore, nail debridement was performed extensively to reduce/remove overall nail length, girth, thickness, subungual debris, and necrotic tissue, by manual and/or electrical means through the use of a nail nipper and/or dremel-type blanchard grinder operator, to a more viable healthy nail plate or bed tissue 6-10. Silver nitrate used for any petechial bleeding as necessary. Definitive antifungal treatment options have been reviewed and discussed with the patient. The patient chooses, no pharmaceutical tx - 01118.?Keratoma Treatment:?Parring or Cutting of Benign Hyperkeratotic Lesion(s)?(-57) More than 4 Lesions - The Benign hyperkeratotic lesions, as described above were pared, and/or cut utilizing a sterile 15 blade, tissue nippers, and/or dremel - 40184 , Q8.?Wart Treatment:?Procedure?Verrucae were debrided to pin-point bleeding margins with sterile 15 surgical blade, silver nitrate chemocautery applied, recomm. immune-boosting meds such as zinc, recomm. follow up with topical chemosurgical agents, Pt defers any other forms of tx - 48260.? * Procedure Codes:?10258 DEBRI DE NAIL, 6 OR MORE, Modifiers: XS 20839 Wart Destruction, 1-14, Modifiers: XS 23931 TRIM SKIN LESIONS, OVER 4, Modifiers: XS , Q8 * Follow Up:?prn * Images: * Sign off status: Completed true * Provider:?Aris Torres DPM Date:?2023 Generated for Piero harvey/Sherine/Ruby on:?05/16/2024 11:59 AM EST History and Physical Notes * HPI (History of Present Illness) Category Sub-Category Detail Notes Category Not es At Risk footcare Pt States Last PCP Visit: Date: 4 Examination Category Sub-Category Detail Notes Category Not es Dermatologic SKIN FINDINGS: Skin exam reveal s Keratotic lesion(s) located at, Medial plantar, IPJ, TA, Medial plantar, IPJ, T5, SUB MTH (s), 1, B/L , SUB MTH (s), 5, B/L , Heel(s), B/L VERRUCA: STILL, Reveals a Sin gle , multi-loculated , mosaically patterned, round, raised, flat-topped, petechial bleeding papule(s), with cauliflower appearance and interruption of skin lines, pain to lateral compression, and size estimated at 7mm diameter, plantar Forefoot, RIGHT Vascular DP PULSES (B): 0/4, B/L PT PULSES (B): 0/4, B/L CAPILLARY FILL TIME: delayed, all digits , B/L TEMPERTURE GRADIENT (C): decreased, cool to cool, proximal to distal, B/L TROPHIC CONDITION-TEXTURE/ELASTICITY/TURGOR/HAIR GROWTH (B): decreased, fragile, thin, shiny skin, wi th sparse to absent hair growth, B/L EDEMA (C): 3/4, non-pitting, wi thout aching pain, B/L, Leg(s), Ankle(s), Feet CLAUDICATION (C): denies, B/L REST PAIN: denies, B/L PIGMENTATION: rubrous, B/L Nails NAILS are: Elongated, overg rown, dystrophic, lytic, greater than 3mm thick, discolored and friable with crumbly malodorous subungual debris, with pain on palpation, 1-5 B/L
--- OUTSIDE RECORDS SUMMARY | 2024-05-16 11:59 | XMS_ITS | Encounter Summary ---
Author Organization [facility] Address [address] [place] [address] Phone Care Team Providers Care Supervisor [employer] Name Role Phone Santana Butler MD Primary Care Provider [phone] Encounter Details Date Type Department Care Team (Latest Contact Info) Description 08/30/2023 Office Communication [facility] [address] [place] [address] Maurizio Sanz MD [address] [address] Hypo-osmolality and hyponatremia (Primary Dx) Social History Tobacco Use Types Packs/Day Years Used Date Smoking Tobacco: Smoker, Current Status Unknown Alcohol Use Standard Drinks/Week Comments Yes 0 (1 standard drink = 0.6 oz pure alcohol) Alcoholic Drinks/day: 3 or more drinks per day Sex and Gender Information Value Date Recorded Sex Assigned at Not on file Legal Sex Male 4:49 PM EST Gender Identity Not on file Sexual Orientation Not on file documented as of this encounter Miscellaneous Notes * Telephone Encounter - Maurizio Sanz MD - 08/30/2023 1:14 PM EDT Pls send him lab slip --thx documented in this encounter Plan of Treatment Upcoming Encounters Date Type Department Care Team (Late st Contact Info) Description 09/08/2024 2:15 PM EDT Office Visit [facility] [address] [place] [address] Maurizio Sanz MD [address] [facility] [address] [place] [address] Scheduled Orders Name Type Priority Associated Diagnoses Orde r Schedule Renal function panel Lab Routine Hypo-osmolality and hyponatremia Expected: 09/06/2023, Expires: 09/28/2024 documented as of this encounter Visit Diagnoses Diagnosis Hypo-osmolality and hyponatremia- Primary documented in this encounter Care Teams Supervisor [employer] Relationship Specialty Start Date End Date Santana Butler MD [address] [place], [place] PCP - General Internal Medicine 10/24/21 documented as of this encounter
--- OUTSIDE RECORDS SUMMARY | 2024-05-16 11:59 | XMS_ITS ---
Author Organization [facility] Address [address] [place] [address] Care Team Providers Care Guest Services Ambassador Name Role Phone Santana Butler MD Primary Care Provider Aris Macario Unavailable [phone] Allergies Allergen (clinical drug ingredient) Drug/Non Drug Allergy documented on EMR Reaction Allergy Type Onset Date Status hay fever (uncoded) Unknown Allergy Active doxycycline Doxycycline Unknown Drug Allergy Act jeremy REASON FOR VISIT Wart(s) Medications Medication SIG (Take, Route, Frequency, Duration) Notes Start Date End Date Status Indomethacin 50 MG 1 capsule with food or milk Orally Twice a day Not-Taking Lidocaine 5 % 1 application as needed Externally Three times a day for 30 days 09/07/2022 Not-Taking Ammonium Lactate 12 % 1 application to affected area Externally to feet Twice a day for 30 days Active Metoprolol Tartrate 100 MG 1 tablet with food Orally Twice a day Not-Taking oxyBUTYnin Chloride ER 10 MG 1 tablet Orally Once a day Not-Taking Spironolactone Activ e Lisinopril Active Metoprolol Succinate 100 MG 1 capsule Orally Once a day Active Tamsulosin HCl 0.4 MG 1 capsule Orally O nce a day Active Torsemide Active Atorvastatin Calcium 40 MG 1 tablet Oral ly Once a day Active Folic Acid Active Gabapentin Active PreserVision AREDS A ctive Aspirin Active Social History Tobacco Use: Social History Observation Description Date Details (start date - stop date) Former Smoker NA - NA Tobacco Use/Smoking Question Answer Notes Are you a: former smoker When did you stop smoking? 20 yrs ago Additional Findings: Tobacco Non-User Current no n-smoker Tobacco use other than smoking: Question Answer Notes Are you an other tobacco user? No Vital Signs Height 5ft9in in 02/13/2024 Weight 165 lbs 02/13/2024 BMI 24.36 kg/m2 02/13/2024 Blood pressure systolic 132 mm Hg 02/13/20 24 Blood pressure diastolic 58 mm Hg 024 Procedures Procedure Date Ordered Date Performed Result Body Sit e 49359-Jvph Destruction, 1-14 02/13/2024 N/A Encounters Encounter Location Date Provider Diagnosis [facility] [address] [place] [id number] 02/13/2024 Aris Torres Right foot pain M79.671 and Plantar wart B07.0 Assessments Encounter Date Diagnosis (ICD Code) Assessment Notes Treatment Notes Treatment Clinical Notes Section Notes 02/13/2024 Right foot pain (ICD-10 - M79.671) 02/13/2024 Plantar wart (ICD-10 - B07.0) Plan Of Treatment Pending Test Test Name Order Date 24758-Clgz Destruction, 1-02/13/2024 Next Appt Details Follow Up: prn, Reason: Procedure Notes * Category Sub-Category Detail Notes Wart Treatment Procedure Verruca, as desc ribed in exam, were debrided to pin- point bleeding margins with sterile 15 surgical blade, silver nitrate chemocautery applied, recomm. immune-boosting meds such as zinc, recomm. follow up with topical chemosurgical agents, Pt defers any other forms of tx - 46013 Progress Notes * Anselmo MALLOY MDOB: [birth year] (73 yo M)Acc No.[id number]:02/13/2024 Progress Notes Patient:?Anselmo MALLOY Provider:?Aris Torres DPM :1950???Age:73 Y???Sex:Male Darrick e:02/13/2024 Address:[address] [place], [place] [phone] Pcp:Santana Bulter MD Subjective: * Chief Complaints: * ???Wart(s) * HPI: ???Skin problems:?Pt States PCP Visit: ?DATE?12/03/2023 * ROS:?General/Constitutional:?Nausea?denies.?Vomiting?denies.?Hunger Thirst?denies.?Loss appetite?denies.?Chills?denies.?Fatigue?denies.?Fever?denies.?Night Sweats?denies.?Unexplained weight loss?denies.?Unexplained [...] than smoking?Are you an other tobacco user??No * Medications:?TakingAspirin A torvastatin Calcium 40 MG Tablet 1 tablet Orally Once a day Folic Acid Gabapentin PreserVision AREDS Spironolactone Lisinopril Metoprolol Succinate 100 MG Capsule ER 24 Hour Sprinkle 1 capsule Orally Once a day Tamsulosin HCl 0.4 MG Capsule 1 capsule Orally Once a day Torsemide Ammonium Lactate 12 % Cream 1 application to affected area Externally to feet Twice a day Taking Aspirin Taking Atorvastatin Calcium 40 MG Tablet 1 tablet Orally Once a day Taking Folic Acid Taking Gabapentin Taking PreserVision AREDS Taking Spironolactone Taking Lisinopril Taking Metoprolol Succinate 100 MG Capsule ER 24 Hour Sprinkle 1 capsule Orally Once a day Taking Tamsulosin HCl 0.4 MG Capsule 1 capsule Orally Once a day Taking Torsemide Taking Ammonium Lactate 12 % Cream 1 application to affected area Externally to feet Twice a day Not-Taking/PRNMetoprolol Tartrate 100 MG Tablet 1 tablet with food Orally Twice a day oxyBUTYnin Chloride ER 10 MG Tablet Extended Release 24 Hour 1 tablet Orally Once a day Indomethacin 50 MG Capsule 1 capsule with food or milk Orally Twice a day Lidocaine 5 % Ointment 1 application as needed Externally Three times a day Medication List reviewed and reconciled with the patientNot-Taking/PRN Metoprolol Tartrate 100 MG Tablet 1 tablet with food Orally Twice a day Not-Taking/PRN oxyBUTYnin Chloride ER 10 MG Tablet Extended Release 24 Hour 1 tablet Orally Once a day Not-Taking/PRN Indomethacin 50 MG Capsule 1 capsule with food or milk Orally Twice a day Not-Taking/PRN Lidocaine 5 % Ointment 1 application as needed Externally Three times a day Medication List reviewed and reconciled with the patient * Allergies:?Leigha damon[Allergies Verified] Objective: * Vitals:?Ht: 5ft9in, Wt:165, BMI:24.36, Shoe size: 10EEE, BP:132/58mm Hg, Ht-cm: 175.26 cm, Wt-k.84 kg. * Examination: ???Dermatologic: ?VERRUCA:?STILL, Reveals a Single , multi-loculated , mosaically patterned, round, raised, flat-topped, petechial bleeding papule(s), with cauliflower appearance and interruption of skin lines, pain to lateral compression, and size estimated at 7mm diameter, plantar Forefoot, RIGHT.? Assessment: * Assessment: 1.?Plantar wart - B07.0 (Gayle gardner)???Specify :RIGHT???2.?Right foot pain - M79.671??? Plan: * Treatment: * Procedures:?Wart Treatment:?Procedure?Verruca, as described in exam, were debrided to pin-point bleeding margins with sterile 15 surgical blade, silver nitrate chemocautery applied, recomm. immune-boosting meds such as zinc, recomm. follow up with topical chemosurgical agents, Pt defers any other forms of tx - 92242.? * Procedure Codes:?87292 Wart Destruction, 1-14 * Follow Up:?prn * Images: * Sign off status: Completed true * Provider:?Aris Torres DPM Date:?2023 Generated for Piero harvey/hSerine/eTransmitting on:?05/16/2024 11:59 AM EST History and Physical Notes * HPI (History of Present Illness) Category Sub-Category Detail Notes Category Not es Skin problems Pt States PCP Visit: DATE: 12/03/2023 Examination Category Sub-Category Detail Notes Category Not es Dermatologic VERRUCA: STILL, Reveals a Single , multi-loculated , mosaically patterned, round, raised, flat-topped, petechial bleeding papule(s), with cauliflower appearance and interruption of skin lines, pain to lateral compression, and size estimated at 7mm diameter, plantar Forefoot, RIGHT
--- OUTSIDE RECORDS SUMMARY | 2024-05-16 11:59 | XMS_ITS | Clinical Summary ---
Author Organization [facility] Address [address] [place] [address] Phone Care Team Providers Care Ham Marker Name Role Phone Santana Butler MD Primary Care Provider [phone] Allergies Active Allergy Reactions Criticality Noted Date Comments Ammonium Lactate (Obsolete) Other (see comments) 10/24/2021 Doxycycline Other (see comments) 10/24/2021 Medications aspirin (ST BECKA) 81 MG EC tablet Take 1 tablet by mouth 1 (one) time each day Active atorvastatin (LIPITOR) 40 MG tablet Take 1 tablet by mouth 1 (one) time each day 11/03/2015 Active metoprolol tartrate (LOPRESSOR) 100 MG tablet Take 100 mg by mouth 1 (one) time each day Active tamsulosin (FLOMAX) 0.4 MG 24 hr capsule Take 1 capsule by mouth in the morning and 1 capsule in the evening. 12/28/2015 Active lisinopril 40 MG tablet Take 40 mg by mouth 1 (one) time each day Active folic acid (FOLVITE) 800 MCG tablet Take 800 mcg by mouth 1 (one) time each day Active torsemide (DEMADEX) 10 MG tablet Take 20 mg by mouth 1 (one) time each day Active spironolactone (ALDACTONE) 25 MG tablet Take 25 mg by mouth 1 (one) time each day Active cyanocobalamin (VITAMIN B-12) 1000 MCG tablet Take 1,000 mcg by mouth 1 (one) time each day Active Multiple Vitamins-Minera ls (PreserVision AREDS 2) capsule Take 2 capsules by mouth 1 (one) time each day Active gabapentin (NEURONTIN) 100 MG capsule 300 mg Active Active Problems Problem Noted Date Diagnosed Date Plantar wart 01/16/2022 Atherosclerosis of [place] arteries of the extrem ities 01/16/2022 Spinal stenosis of lumbar region 04/25/2021 Benign essential hypertension 02/03/2021 Hyposmolality and/or hyponatremia 02/03/2021 Peripheral neuropathy 03/30/2020 Foot callus 03/30/2020 Acquired hammer toes of bilateral feet Acquired hallux rigidus 03/30/2020 Thoracic aortic aneurysm without rupture 020 Dyslipidemia 02/17/2020 Overview (07/20/2022): Last Assessment & Plan: Well-controlled lipid profile from earlier this year. Continue statin at current dose. Coronary arteriosclerosis 02/17/2020 Overview (07/20/2022): Cath 12/2019 showed moderate stenosis of the mid LAD and severe stenosis of the distal circumflex not amenable to PCI CI. 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 Continue ongoing medical therapy with aspirin, beta-audie, Aldactone, statin and JOHANNY inhibitor. Chronic systolic heart failure 02/17/2020 Cardiomyopathy 02/17/2020 Overview (07/20/2022): LVEF December 2019 [facility] 30-35% with inferior wall and basal to mid inferolateral wall severe hypokinesis to akinesis Cardiomyopathy out of proportion to coronary artery disease LVEF improved to 45% in March 2020 with medical therapy Entresto is cost prohibitive Last [...] so. Continue ongoing medical therapy for his myopathy with JOHANNY inhibitor, beta-audie, Aldactone. Entresto has been cost prohibitive. Immunizations Name Administration Dates Next Due Influenza, Unspecified 12/25/2019 Family History Medical History Relation Comments Heart disease Father Hypertension Father Relation Status Comments Father Unknown Mother Unknown Social History Tobacco Use Types Packs/Day Years [...] on file Sexual Orientation Not on file Last Filed Vital Signs Vital Sign Reading Time Taken Comments Blood Pressure 127/65 08/27/2023 1:06 PM EDT Pulse 59 08/27/2023 1:06 PM EDT Temperature - - Respiratory Rate - - Oxygen Saturation 99% 08/27/2023 1:06 PM EDT Inhaled Oxygen Concentration - - Weight 74.1 kg (163 lb 6.4 oz) 08/27/2023 1:06 P M EDT Height - - Body Mass Index - - Plan of Treatment Upcoming Encounters Date Type Department Care Team (Late st Contact Info) Description 09/08/2024 2:15 PM EDT Office Visit [facility] [address] [place] [address] [place] [phone] Maurizio Sanz MD [address] [phone] Health Maintenance Due Date Last Done Comments Pneumococcal Vaccine: 65+ Ye ars (1 of 2 - PCV) 1956 Influenza Vaccine (#1) 2023 12/25/2019 Hepatitis B Vaccine Aged Out No longe r eligible based on patient's age to complete this topic Insurance [facility] Care Teams Ham Marker Relationship Specialty Start Date End Date Santana Butler MD [address] [place] [address] PCP - General Internal Medicine 10/24/21
--- OUTSIDE RECORDS SUMMARY | 2024-05-16 11:59 | XMS_ITS | Encounter Summary ---
Author Organization [facility] Address [address] [facility] [address] [place] [address] Phone Care Team Providers Care Occupational Health Manager Name Role Phone Santana Butler MD Primary Care Provider [phone] Encounter Details Date Type Department Care Team (Latest Contact Info) Description 01/25/2023 Office Communication [facility] [address] [place] [address] Maurizio Sanz MD [address] [phone] Hypo-osmolality and hyponatremia (Primary Dx) Social History [...] Telephone Encounter - Maurizio Sanz MD - 01/25/2023 2:59 PM EST Needs labs in 1 wk--pls call him--pls send him lab slip in epic documented in this encounter Plan of Treatment Upcoming Encounters Date Type Department Care Team (Late st Contact Info) Description 09/08/2024 2:15 PM EDT Office Visit [facility] [address] [place] [phone] Maurizio Sanz MD [address] [address] [place] [address] Scheduled Orders Name Type Priority Associated Diagnoses Orde r Schedule Renal function panel Lab Routine Hypo-osmolality and hyponatremia Expected: 02/01/2023, Expires: 02/25/2024 documented as of this encounter Visit Diagnoses Diagnosis Hypo-osmolality and hyponatremia- Primary documented in this encounter Care Teams Occupational Health Manager Relationship Specialty Start Date End Date Santana Butler MD [address] [place], [place] PCP - General Internal Medicine 10/24/21 documented as of this encounter
--- OUTSIDE RECORDS SUMMARY | 2024-05-16 12:00 | XMS_ITS | Patient Health Record ---
Author Organization [facility] Address [address] [place] [address] Care Team Providers Care Hoop Rolls Operator Name Role Phone Santana Butler MD Primary Care Provider Aris Macario Unavailable [phone] Allergies Allergen (clinical drug ingredient) Drug/Non Drug Allergy documented on EMR Reaction Allergy Type Onset Date Status hay fever (uncoded) Unknown Allergy Active doxycycline Doxycycline Unknown Drug Allergy Act jeremy Reason For Referral No Information Medications Medication SIG (Take, Route, Frequency, Duration) Notes Start Date End Date Status Atorvastatin Calcium 40 MG 1 tablet Oral ly Once a day Active Folic Acid Active Indomethacin 50 MG 1 capsule with food or milk Orally Twice a day Not-Taking Gabapentin Active Lidocaine 5 % 1 application as needed Externally Three times a day for 30 days 09/07/2022 Not-Taking PreserVision AREDS A ctive Spironolactone Activ e Lisinopril Active Metoprolol Succinate 100 MG 1 capsule Orally Once a day Active Tamsulosin HCl 0.4 MG 1 capsule Orally O nce a day Active Aspirin Active Torsemide Active Ammonium Lactate 12 % 1 application to affected area Externally to feet Twice a day for 30 days Active Metoprolol Tartrate 100 MG 1 tablet with food Orally Twice a day Not-Taking oxyBUTYnin Chloride ER 10 MG 1 tablet Orally Once a day Not-Taking Social History Tobacco Use: Social History Observation [...] Are you an other tobacco user? No Problems Problem Type SNOMED Code ICD Code Onset Dates Problem Status W/U Status Risk Notes Problem Plantar wart (79813449) Plantar wart (B07.0) Active confirmed Problem Atherosclerosis of [place] arteries of the extremities ([id number]) Atherosclerosis of [place] artery of both lower extremities, with unspecified presence of clinical manifestation (I70.203) Active confirmed Vital Signs Blood pressure diastolic 58 mm Hg 02/13/2024 Height 5ft9in in 02/13/2024 Blood pressure systolic 132 mm Hg 02/13/2024 Weight 165 lbs 02/13/2024 BMI 24.36 kg/m2 02/13/2024 Procedures Procedure Date Ordered Date Performed Result Body Sit e 15328-TBSCWLN NAIL, 6 OR MORE 01/03/2024 N/A 32402-Xasj Destruction, 1-01/03/2024 N/A 53754-SKNK SKIN LESIONS, OVER 4 01/03/2024 N/A 90518-Brjj Destruction, 1-14 02/13/2024 N/A 05757-COBL SKIN LESIONS, OVER 4 11/01/2023 N/A 16699-Cbpgarfy Plate 11/01/2023 N/A 08415-Wecd Destruction, 1-14 11/01/2023 N/A 83554-FIQFICA NAIL, 6 OR MORE 11/01/2023 N/A 09288-WJYC SKIN LESIONS, OVER 4 06/27/2023 N/A 48050-Xczo Destruction, 1-06/27/2023 N/A 72775-BVWGBPZ NAIL, 6 OR MORE 06/27/2023 N/A Encounters Encounter Location Date Provider Diagnosis [facility] [address] [place] [phone] 06/27/2023 Aris Torres Atherosclerosis of [place] artery of both lower extremities, with unspecified presence of clinical manifestation I70.203 ; Onychomycosis B35.1 ; Pain of toe of right foot M79.674 ; Pain of toe of left foot M79.675 ; Verruca pedis B07.0 and Right foot pain M79.[address] [address] 11/01/2023 Aris Torres Atherosclerosis of [place] artery of both lower extremities, with unspecified presence of clinical manifestation I70.203 ; Onychomycosis B35.1 ; Pain of toe of right foot M79.674 ; Pain of toe of left foot M79.675 ; Verruca pedis B07.0 ; Right foot pain M79.671 and Ingrown nail L60.[address] [address] 01/03/2024 Aris Norwoodunier Atherosclerosis of [place] artery of both lower extremities, with unspecified presence of clinical manifestation I70.203 ; Onychomycosis B35.1 ; Pain of toe of right foot M79.674 ; Pain of toe of left foot M79.675 ; Verruca pedis B07.0 and Right foot pain M79.[address] [address] 02/13/2024 Aris Torres Right foot pain M79. 671 and Plantar wart B07.0 Assessments Encounter Date Diagnosis (ICD Code) Assessment Notes Treatment Notes Treatment Clinical Notes Section Notes 06/27/2023 Onychomycosis (ICD-10 - B35.1) 06/27/2023 Atherosclerosis of [place] artery of both lower extremities, with unspecified presence of clinical manifestation (ICD-10 - I70.203) 11/01/2023 Onychomycosis (ICD-10 - B35.1) 11/01/2023 Atherosclerosis of [place] artery of both lower extremities, with unspecified presence of clinical manifestation (ICD-10 - I70.203) 01/03/2024 Onychomycosis (ICD-10 - B35.1) 01/03/2024 Atherosclerosis of [place] artery of both lower extremities, with unspecified presence of clinical manifestation (ICD-10 - I70.203) 02/13/2024 Plantar wart (ICD-10 - B07.0) 02/13/2024 Right foot pain (ICD-10 - M79.671) 11/01/2023 Pain of toe of right foot (ICD-10 - M79.674) 01/03/2024 Pain of toe of right foot (ICD-10 - M79.674) 06/27/2023 Pain of toe of right foot (ICD-10 - M79.674) 06/27/2023 Pain of toe of left foot (ICD-10 - M79.675) 11/01/2023 Pain of toe of left foot (ICD-10 - M79.675) 01/03/2024 Pain of toe of left foot (ICD-10 - M79.675) 01/03/2024 Verruca pedis (ICD-10 - B07.0) Chronic 11/01/2023 Verruca pedis (ICD-10 - B07.0) Chronic 06/27/2023 Verruca pedis (ICD-10 - B07.0) Chronic 06/27/2023 Right foot pain (ICD-10 - M79.671) 11/01/2023 Right foot pain (ICD-10 - M79.671) 01/03/2024 Right foot pain (ICD-10 - M79.671) 11/01/2023 Ingrown nail (ICD-10 - L60.0) Plan Of Treatment Pending Test Test Name Order Date 32956-QKGPWJH NAIL, 6 OR MORE 03/25/2018 75460-NPANLOB NAIL, 6 OR MORE 06/24/2018 86370-CSIAAXB NAIL, 6 OR MORE 10/07/2018 28578-LMKAVWU NAIL, 6 OR MORE 01/06/2019 05951-FIMGSVM NAIL, 6 OR MORE 04/16/2019 69260-IQAAEIP NAIL, 6 OR MORE 07/16/2019 66629-DPNLSSV NAIL, 6 OR MORE 04/25/2021 48722-PSZMDMC NAIL, 6 OR MORE 07/25/2021 61325-QLQQFQF NAIL, 6 OR MORE 10/24/2021 47321-KZLSWLW NAIL, 6 OR MORE 01/23/2022 10523-YFDIPNM NAIL, 6 OR MORE 04/10/2022 36499-JDFDUVX NAIL, 6 OR MORE 07/27/2022 04410-MXWZQYQ NAIL, 6 OR MORE 10/19/2022 18083-WSGQAYE NAIL, 6 OR MORE 01/08/2023 63788-VMNRHVN NAIL, 6 OR MORE 03/26/2023 43932-AMTUATC NAIL, 6 OR MORE 06/27/2023 10745-ZSSOEPR NAIL, 6 OR MORE 11/01/2023 36830-BFEMAUB NAIL, 6 OR MORE 01/03/2024 00731-Kvbx Destruction, 1-14 01/03/2024 05604-Oygy Destruction, -14 05/14/2023 01510-Pmpd Destruction, -14 11/01/2023 99658-Awug Destruction, -14 06/27/2023 43715-Tcyk Destruction, -14 03/26/2023 15409-Htdk Destruction, -14 09/07/2022 99786-Evlg Destruction, -14 02/19/2023 84234-Zqmg Destruction, -14 01/08/2023 78305-Thll Destruction, -14 10/19/2022 06889-Rtbg Destruction, -14 02/13/2024 67867-Jmeo Destruction, -14 07/27/2022 28569-Cajo Destruction, -14 05/29/2022 32180-Nazp Destruction, -14 04/10/2022 04676-Tyau Destruction, -14 03/02/2022 03722-Jrzf Destruction, -14 01/23/2022 84144-Fzvb Destruction, -14 10/24/2021 30851-Dezy Destruction, -14 12/15/2021 38037-Kets Destruction, -14 07/16/2019 85551-Srju Destruction, -14 04/16/2019 91841-Kwma Destruction, -14 01/06/2019 86434-Cgtd Destruction, -14 10/07/2018 64704-Axbo Destruction, -14 06/24/2018 08536-Dfkh Destruction, -14 04/12/2017 37816-Txmv Destruction, 14 07/16/2017 88059-Ohqt Destruction, -10/17/2017 89379-Pymo Destruction, -01/10/2018 44436-Ubrl Destruction, -03/25/2018 03090-Fwpevqit Plate 04/25/2021 90680-Taoetjwt Plate 11/01/2023 75670- Debride <25 sq cm 04/10/2022 48043-BBTTTMN SKIN/TISSUE 03/22/2022 45517-VHWL SKIN LESIONS, OVER 4 04/10/19 50223-BLIA SKIN LESIONS, OVER 4 07/28/19 71567-DNWW SKIN LESIONS, OVER 4 01/24/20 04407-VZUI SKIN LESIONS, OVER 4 10/25/19 78103-EXGG SKIN LESIONS, OVER 4 07/26/19 27873-CEFC SKIN LESIONS, OVER 4 04/25/19 16793-FYSY SKIN LESIONS, OVER 4 01/03/20 24 28950-AHFD SKIN LESIONS, OVER 4 06/27/19 39851-KOFV SKIN LESIONS, OVER 4 11/01/19 24 17151-HPUV SKIN LESIONS, OVER 4 10/20/19 73818-FPOX SKIN LESIONS, OVER 4 01/09/20 08089-PMMY SKIN LESIONS, OVER 4 03/26/19 Insurance Providers Payer Name Payer Address Payer Phone Subscriber Number Group Number Insured Name Patient Relationship to Insured Coverage Start Date Coverage End Date [employer]age [address] [place] [address] [id number] Anselmo Rod Self - patient is the insured Medical (General) History Medical History History ICD Code Arthritis Back,Hip,and Knee pain Cancer Cholesterol High blood pressure Gout Mumps Surgical History Surgery Date(Month/Year) back surgery colon hand/wrist 05/10/17
--- OUTSIDE RECORDS SUMMARY | 2024-05-16 12:00 | XMS_ITS ---
[facility] Organization [facility] Address [address] [place] [address] Care Team Providers Care Supplier Development Manager Name Role Phone Santana Butler MD Primary Care Provider Aris Macario Unavailable [phone] Allergies Allergen (clinical drug ingredient) Drug/Non Drug Allergy documented on EMR Reaction Allergy Type Onset Date Status hay fever (uncoded) Unknown Allergy Active doxycycline Doxycycline Unknown Drug Allergy Act jeremy REASON FOR VISIT At Risk Footcare, Painful Nail(s) aggrevated by shoes and causing difficulty standing/walking., Wart(s), Ingrown Nail Medications Medication SIG (Take, Route, Frequency, Duration) Notes Start Date End Date Status Torsemide Active Tamsulosin HCl 0.4 MG 1 capsule Orally O nce a day Active Metoprolol Succinate 100 MG 1 capsule Orally Once a day Active Lisinopril Active Spironolactone Activ e Aspirin Active Gabapentin Active Folic Acid Active Atorvastatin Calcium 40 MG 1 tablet Oral ly Once a day Active PreserVision AREDS A ctive Metoprolol Tartrate 100 MG 1 tablet with food Orally Twice a day Not-Taking Ammonium Lactate 12 % 1 application to affected area Externally to feet Twice a day for 30 days Active Indomethacin 50 MG 1 capsule with food or milk Orally Twice a day Not-Taking oxyBUTYnin Chloride ER 10 MG 1 tablet Orally Once a day Not-Taking Lidocaine 5 % 1 application as needed Externally Three times a day for 30 days 09/07/2022 Not-Taking Social History Tobacco Use: Social History [...] No Vital Signs Height 5ft 9in in 11/01/2023 Weight 162 lbs 11/01/2023 BMI 23.92 kg/m2 11/01/2023 Procedures Procedure Date Ordered Date Performed Result Body Sit e 21646-PUIZXHO NAIL, 6 OR MORE 11/01/2023 N/A 21420-Ycnk Destruction, 1-14 11/01/2023 N/A 09403-Koiojpad Plate 11/01/2023 N/A 44645-MAQL SKIN LESIONS, OVER 4 11/01/2023 N/A Encounters Encounter Location Date Provider Diagnosis [facility] [address] [address] 11/01/2023 Aris Torres Atherosclerosis of [place] tribe artery of both lower extremities, with unspecified presence of clinical manifestation I70.203 ; Onychomycosis B35.1 ; Pain of toe of right foot M79.674 ; Pain of toe of left foot M79.675 ; Verruca pedis B07.0 ; Right foot pain M79.671 and Ingrown nail L60.0 Assessments Encounter Date Diagnosis (ICD Code) Assessment Notes Treatment Notes Treatment Clinical Notes Section Notes 11/01/2023 Atherosclerosis of [place] tribe artery of both lower extremities, with unspecified presence of clinical manifestation (ICD-10 - I70.203) 11/01/2023 Onychomycosis (ICD-10 - B35.1) 11/01/2023 Pain of toe of right foot (ICD-10 - M79.674) 11/01/2023 Pain of toe of left foot (ICD-10 - M79.675) 11/01/2023 Verruca pedis (ICD-10 - B07.0) Chronic 11/01/2023 Right foot pain (ICD-10 - M79.671) 11/01/2023 Ingrown nail (ICD-10 - L60.0) Plan Of Treatment Pending Test Test Name Order Date 81310-WOAHRVP NAIL, 6 OR MORE 11/01/2023 90273-Hnoy Destruction, 1-14 11/01/2023 80610-Ntyylvdi Plate 11/01/2023 52367-ZUYZ SKIN LESIONS, OVER 4 11/01/19 24 Next Appt Details Follow Up: prn, Reason: Procedure Notes * Category Sub-Category Detail Notes Wart Treatment Procedure Verrucae(s) were debrided to pin-point bleeding margins with sterile surgical blade, silver nitrate chemocautery applied, recomm. immune-boosting meds such as zinc, recomm. follow up with topical chemosurgical agents, Pt defers any other forms of tx (25620) Nail Avulsion Procedure A fine sterile e levator was placed between the eponychium, nail fold, and nail plate to separate the structures. A sterile nail splitter, and/or sterile 316 blade, was then used to longitudinally section the nail along its entire length through the eponychium to the area under the nail fold. The offending portion of nail was from the nail bed with a rolling action and then removed with a hemostat. No underlying bone was identified. There was minimal bleeding as hemostasis was achieved through the temporary use of either a digital tourniquet or the aforementioned local with epinephrine. A bacitracin sterile dressing was applied. Local wound aftercare instructions were discussed and dispensed. The patient was informed of both conservative and future surgical procedures to prevent recurrence. Tylenol or Motrin was recommended for pain or discomfort (42505) , CIRCULATION: Pt was advised as to the risk of delayed or nonhealing due to circulation. Pt is to call the office with any questions, concerns, or complications Anesthesia was accomplished TOP ICALLY with Lidocaine Hydrochloride Jelly 2 percent Location Lateral nail border , TA Debride Nail 6-10 Nail debridement Nail debridem ent performed extensively to reduce/remove overall nail length, girth, thickness, subungual debris, and necrotic tissue, by manual and electrical means through the use of a nail nipper and/or dremel, to more viable healthy nail plate or bed tissue 6-10. Silver nitrate used for any petechial bleeding as necessary. Patient chooses, no pharmaceutical tx (20911) Keratoma Treatment Parring or Cutting o f Benign Hyperkeratotic Lesion(s) 88591 ( >4 Lesions) - The Benign hyperkeratotic lesions, as described above were pared, and/or cut utilizing a sterile #15 blade, tissue nippers, and/or dremel, Q8 Progress Notes * Anselmo MALLOY MDOB: [birth year] (72 yo M)Acc No.[id number]:11/01/2023 Progress Note Patient:?Anselmo Malloy Provider:?Aris Torres DPM :1950???Age:72 Y???Sex:Male Darrick e:11/01/2023 Address:[address] [place], [place] [id number] Pcp:Santana Butler MD Subjective: * Chief Complaints: * ???At Risk FootcarePainful N ail(s) aggrevated by shoes and causing difficulty standing/walking.Wart(s)Ingrown Nail * HPI: ???At Risk footcare:?Pt States Last PCP Visit:?Date?08/29/2023 * ROS:?General/Constitutional:?Nausea?denies.?Vomiting?denies.?Hunger Thirst?denies.?Loss appetite?denies.?Chills?denies.?Fatigue?denies.?Fever?denies.?Night Sweats?denies.?Unexplained weight loss?denies.?Unexplained [...] colon hand/wrist 05/10/17 * Hospitalization/Major Diagno stic Procedure:?No Hospitalization History. * Family History:?Mother: anabella brenner?Father: , diagnosed [...] ?no Exercise. ?Marital status: . 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 * Medications:?TakingAspirin Atorvastatin Calcium 40 MG Tablet 1 tablet [...] cm, Wt-k.48 kg. * Examination: ???Vascular: ?DP PULSES:? 0/4, B/L.?PT PULSES:? 0/4, B/L.?CAPILLARY FILL TIME:? delayed, all digits, B/L.?SKIN TEMPERTURE GRADIENT OF THE LOWER EXTERMITIES:? decreased, cool to cool, proximal to distal, B/L.?HAIR GROWTH/TEXTURE/ELASTICITY/TURGOR:? decreased, B/L.?PIGMENTATION:? rubrous, B/L.?EDEMA:? 3/4, non-pitting, without aching pain, B/L, Leg(s), Ankle(s), Feet.?CLAUDICATION:?denies, B/L.?REST PAIN:?denies, B/L.?Nails: ?NAILS are:? Elongated, overgrown, [...] size estimated at 7mm diameter, plantar Forefoot, RIGHT.?Ingrown Nail: ?INSPECTION:?Reveals nail incurvation, pain on palpation, groove hypertrophy , Lateral nail border , TA.? Assessment: * Assessment: 1.?Onychomycosis - B35.1?2.? Atherosclerosis of s[place] tribe artery of both lower extremities, with unspecified presence of clinical manifestation - I70.203?3.?Pain of toe of right foot - M79.674?4.?Pain of toe of left foot - M79.675?5.?Verruca pedis - B07.0, RIGHT, Chronic?6.?Right foot pain - M79.671?7.?Ingrown nail - L60.0, Lateral nail border , TA? Plan: * Treatment: 2.?Atherosclerosis of [place] tribe artery of both lower extremities, with unspecified presence of clinical manifestation?Procedure: 12377-PXLY SKIN LESIONS, OVER 4 3.?Verruca pedis?Procedure: 63358-Irkq Destruction, 1-14 4.?Ingrown nail?Procedure: 23439-Aatzvdyn Plate * Procedures:?Debride Nail 6-10:?Nail debridement?Nail debridement performed extensively to reduce/remove overall nail length, girth, thickness, subungual debris, and necrotic tissue, by manual and electrical means through the use of a nail nipper and/or dremel, to more viable healthy nail plate or bed tissue 6-10. Silver nitrate used for any petechial bleeding as necessary. Patient chooses, no pharmaceutical tx (36388).?Keratoma Treatment:?Parring or Cutting of Benign Hyperkeratotic Lesion(s)?95234 ( >4 Lesions) - The Benign hyperkeratotic lesions, as described above were pared, and/or cut utilizing a sterile #15 blade, tissue nippers, and/or dremel, Q8.?Nail Avulsion:?Location?Lateral nail border?,?TA.?Anesthesia?was accomplished TOPICALLY with Lidocaine Hydrochloride Jelly 2 percent.?Procedure?A fine sterile elevator was placed between the eponychium, nail fold, and nail plate to separate the structures. A sterile nail splitter, and/or sterile 316 blade, was then used to longitudinally section the nail along its entire length through the eponychium to the area under the nail fold. The offending portion of nail was from the nail bed with a rolling action and then removed with a hemostat. No underlying bone was identified. There was minimal bleeding as hemostasis was achieved through the temporary use of either a digital tourniquet or the aforementioned local with epinephrine. A bacitracin sterile dressing was applied. Local wound aftercare instructions were discussed and dispensed. The patient was informed of both conservative and future surgical procedures to prevent recurrence. Tylenol or Motrin was recommended for pain or discomfort (60818) , CIRCULATION: Pt was advised as to the risk of delayed or nonhealing due to circulation. Pt is to call the office with any questions, concerns, or complications.?Wart Treatment:?Procedure?Verrucae(s) were debrided to pin-point bleeding margins with sterile surgical blade, silver nitrate chemocautery applied, recomm. immune-boosting meds such as zinc, recomm. follow up with topical chemosurgical agents, Pt defers any other forms of tx (46926).? * Procedure Codes:?38980 DEBRI DE NAIL, 6 OR MORE, Modifiers: XS 04475 Avulsion Plate, Modifiers: XS , [id number] Wart Destruction, 1-14, Modifiers: XS 58311 TRIM SKIN LESIONS, OVER 4, Modifiers: XS [...] Category Sub-Category Detail Notes Category Not es Ingrown Nail INSPECTION: Reveals nail inc urvation, pain on palpation, groove hypertrophy , Lateral nail border , TA Dermatologic SKIN FINDINGS: Skin exam reveal s [...] distal, B/L TROPHIC CONDITION-TEXTURE/ELASTICITY/TURGOR/HAIR GROWTH (B): decreased, B/L EDEMA (C): 3/4, non-pitting, wi thout aching pain, B/L, Leg(s), Ankle(s), Feet CLAUDICATION (C): denies, B/L REST PAIN: denies, B/L PIGMENTATION: rubrous, B/L Nails NAILS are: Elongated, overg rown, dystrophic, lytic, greater than 3mm thick, discolored and friable with crumbly malodorous subungual debris, with pain on palpation, 1-5 B/L
== END 2024-05-16 10:30 | disposition home or self-care (01) ==
LOC: HO.10HDL 10:29
PROVIDERS: Visit Provider Internal Medicine
DX: I10 Essential (primary) hypertension (principal)
CPT/HCPCS: 36415; 80053

== ENCOUNTER 2024-07-30 09:20 | Outpatient (REF) | payer MEDICARE, SELFPAY ==
--- OUTSIDE RECORDS SUMMARY | 2024-07-30 09:52 | XMS_ITS ---
Author [facility] Address [address] [place] [address] Care Team Providers Care Sample Tester Name Role Phone Santana Butler MD Primary Care Provider Aris Macario Unavailable [phone] Allergies Allergen (clinical drug ingredient) Drug/Non Drug [...] Ordered Date Performed Result Body Sit e 40635-HOZNPMJ NAIL, 6 OR MORE 01/03/2024 N/A 04234-Bbtn Destruction, 1-14 01/03/2024 N/A 80202-NFBU SKIN LESIONS, OVER 4 01/03/2024 N/A Encounters Encounter Location Date Provider Diagnosis [facility] [place] [address] [address] 01/03/2024 Aris Torres Atherosclerosis of [place] artery of both lower extremities, with unspecified presence of clinical manifestation I70.203 ; Onychomycosis B35.1 ; Pain of toe of right foot M79.674 ; Pain of toe of left foot M79.675 ; Verruca pedis B07.0 and Right foot pain M79.671 Assessments Encounter Date Diagnosis (ICD Code) Assessment Notes Treatment Notes Treatment Clinical Notes Section Notes 01/03/2024 Atherosclerosis of [place] artery of both lower extremities, with unspecified presence of clinical manifestation (ICD-10 - I70.203) 01/03/2024 Onychomycosis (ICD-10 - B35.1) 01/03/2024 Pain of toe of right foot (ICD-10 - M79.674) 01/03/2024 Pain of toe of left foot (ICD-10 - M79.675) 01/03/2024 Verruca pedis (ICD-10 - B07.0) Chronic 01/03/2024 Right foot pain (ICD-10 - M79.671) Plan Of Treatment Pending Test Test Name Order Date 33798-RWWHIOD NAIL, 6 OR MORE 01/03/2024 89652-Ddgq Destruction, 1-14 01/03/2024 42020-ERNI SKIN LESIONS, OVER 4 01/03/20 24 Next Appt Details Follow Up: prn, Reason: Procedure Notes * Category Sub-Category Detail Notes Wart Treatment Procedure Verrucae were de brided to pin-point bleeding margins with sterile 15 surgical blade, silver nitrate chemocautery applied, recomm. immune-boosting meds such as zinc, recomm. follow up with topical chemosurgical agents, Pt defers any other forms of tx - 19083 Debride Nail 6-10 Nail debridement Performance o f this nail treatment by a nonprofessional would put this patients foot and overall health at risk. Therefore, nail debridement was performed extensively to reduce/remove overall nail length, girth, thickness, subungual debris, and necrotic tissue, by manual and/or electrical means through the use of a nail nipper and/or dremel-type almond grinder, to a more viable healthy nail plate or bed tissue 6-10. Silver nitrate used for any petechial bleeding as necessary. Definitive antifungal treatment options have been reviewed and discussed with the patient. The patient chooses, no pharmaceutical tx - 33345 Keratoma Treatment Parring or Cutting o f Benign Hyperkeratotic Lesion(s) (-57) More than 4 Lesions - The Benign hyperkeratotic lesions, as described above were pared, and/or cut utilizing a sterile 15 blade, tissue nippers, and/or dremel - 46353 , Q8 Progress Notes * Anselmo MALLOY MDOB: [birth year] (73 yo M)Acc No.[id number]:01/03/2024 Progress Notes Patient:?Anselmo Malloy Shruthi Provider:?Aris Torres DPM :1950???Age:73 Y???Sex:Male Darrick e:01/03/2024 Address:[address] [place], [place] [address] Pcp:Santana Butler MD Subjective: * Chief Complaints: [...] ?no Exercise. ?Marital status: . 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 * Medications:?TakingAspirin A torvastatin Calcium 40 MG [...] * Assessment: 1.?Onychomycosis - B35.1?2.? Atherosclerosis of [place] artery of both lower extremities, with unspecified presence of clinical manifestation - I70.203?3.?Pain of toe of right foot - M79.674?4.?Pain of toe of left foot - M79.675?5.?Verruca pedis - B07.0, RIGHT, Chronic?6.?Right foot pain - M79.671? Plan: * Treatment: 2.?Atherosclerosis of [place] artery of both lower extremities, with unspecified presence of clinical manifestation?Procedure: 61791-BOYI SKIN LESIONS, OVER 4 3.?Verruca pedis?Procedure: 46766-Etez Destruction, 1-14 * Procedures:?Debride Nail 6-10:?Nail debridement?Performance of this nail treatment by a nonprofessional would put this patients foot and overall health at risk. Therefore, nail debridement was performed extensively to reduce/remove overall nail length, girth, thickness, subungual debris, and necrotic tissue, by manual and/or electrical means through the use of a nail nipper and/or dremel-type almond grinder, to a more viable healthy nail plate or bed tissue 6-10. Silver nitrate used for any petechial bleeding as necessary. Definitive antifungal treatment options have been reviewed and discussed with the patient. The patient chooses, no pharmaceutical tx - 81771.?Keratoma Treatment:?Parring or Cutting of Benign Hyperkeratotic Lesion(s)?(-57) More than 4 Lesions - The Benign hyperkeratotic lesions, as described above were pared, and/or cut utilizing a sterile 15 blade, tissue nippers, and/or dremel - 60504 , Q8.?Wart Treatment:?Procedure?Verrucae were debrided to pin-point bleeding margins with sterile 15 surgical blade, silver nitrate chemocautery applied, recomm. immune-boosting meds such as zinc, recomm. follow up with topical chemosurgical agents, Pt defers any other forms of tx - 32996.? * Procedure Codes:?70781 DEBRI DE NAIL, 6 OR MORE, Modifiers: XS 07616 Wart Destruction, 1-14, Modifiers: XS 74377 TRIM SKIN LESIONS, OVER 4, Modifiers: XS , Q8 * Follow Up:?prn * Images: * Sign off status: Completed true * Provider:?Aris Torres DPM Date:?2023 Generated for Piero harvey/Sherine/Ruby on:?07/30/2024 09:52 AM EDT History and Physical Notes * HPI (History [...]
--- OUTSIDE RECORDS SUMMARY | 2024-07-30 09:52 | XMS_ITS | Clinical Summary ---
Author Organization [facility] Address [address] [place] [address] Phone Care Team Providers Care Choker Setter Name Role Phone Santaan Butler MD Primary Care Provider [phone] Allergies Active Allergy Reactions Criticality Noted Date [...] Diagnosed Date Plantar wart 01/16/2022 Atherosclerosis of [place] arteries of the extrem ities 01/16/2022 Spinal [...] Cardiomyopathy 02/17/2020 Overview (07/20/2022): LVEF December 2019 [facility] 30-35% with inferior wall and basal [...] Aldactone. Entresto has been cost prohibitive. Immunizations Immunization Administration Dates Next Due Influenza, Unspecified 12/25/2019 [...] Visit [facility] [address] [place] [address] [place] [address] Maurizio Sanz MD [address] [phone] Health Maintenance Due Date Last Done Comments Pneumococcal Vaccine: 50+ Ye ars (1 of 2 - PCV) 1969 Influenza Vaccine (Season Ended) 2024 12/25/19 20 Hepatitis B Vaccine Aged Out No longe r eligible based on patient's age to complete this topic Insurance [facility] Care Teams Choker Setter Relationship Specialty Start Date End Date Santana Butler MD [address] [place] [address] PCP - General Internal Medicine 10/24/21
--- OUTSIDE RECORDS SUMMARY | 2024-07-30 09:52 | XMS_ITS | Patient Health Record ---
Author Organization [facility] Address [address] [place] [address] Care Team Providers Care Clothing Patternmaker Name Role Phone Santana Butler MD Primary Care Provider Aris Macario Unavailable [phone] Allergies Allergen (clinical drug ingredient) Drug/Non Drug [...] W/U Status Risk Notes Problem Plantar wart (19969475) Plantar wart (B07.0) Active confirmed Problem Atherosclerosis of [place]qu[place] arteries of the extremities (911178810299108) Atherosclerosis of [place] artery of both lower extremities, with unspecified presence of clinical manifestation (I70.203) Active confirmed Vital Signs Blood pressure diastolic 58 mm Hg 02/13/2024 Height 5ft9in in 02/13/2024 Blood pressure systolic 132 mm Hg 02/13/2024 Weight 165 lbs 02/13/2024 BMI 24.36 kg/m2 02/13/2024 Procedures Procedure Date Ordered Date Performed Result Body Sit e 71111-IQQOJKA NAIL, 6 OR MORE 11/01/2023 N/A 38522-Wdzj Destruction, 1-11/01/2023 N/A 60415-Yoaricze Plate 11/01/2023 N/A 18889-YFRL SKIN LESIONS, OVER 4 11/01/2023 N/A 21253-GKEKZUE NAIL, 6 OR MORE 01/03/2024 N/A 20111-Zoxz Destruction, 1-14 01/03/2024 N/A 43395-PLWZ SKIN LESIONS, OVER 4 01/03/2024 N/A 06911-Nfph Destruction, 1-14 02/13/2024 N/A Encounters Encounter Location Date Provider Diagnosis [facility] [address] [address] 11/01/2023 Aris Torres Atherosclerosis of [place] artery of both lower extremities, with unspecified presence of clinical manifestation I70.203 ; Onychomycosis B35.1 ; Pain of toe of right foot M79.674 ; Pain of toe of left foot M79.675 ; Verruca pedis B07.0 ; Right foot pain M79.671 and Ingrown nail L60.0 [facility] [address] [address] 01/03/2024 Aris Torres Atherosclerosis of [place] artery of both lower extremities, with unspecified presence of clinical manifestation I70.203 ; Onychomycosis B35.1 ; Pain of toe of right foot M79.674 ; Pain of toe of left foot M79.675 ; Verruca pedis B07.0 and Right foot pain M79.671 [facility] [address] [address] 02/13/2024 Aris Torres Right foot pain M79. 671 and Plantar wart B07.0 Assessments Encounter Date Diagnosis (ICD Code) Assessment Notes Treatment Notes Treatment Clinical Notes Section Notes 11/01/2023 Onychomycosis (ICD-10 - B35.1) 11/01/2023 Atherosclerosis of [place] artery of both lower extremities, with unspecified presence of clinical manifestation (ICD-10 - I70.203) 01/03/2024 Onychomycosis (ICD-10 - B35.1) 01/03/2024 Atherosclerosis of [place] artery of both lower extremities, with unspecified [...] 11/01/2023 Verruca pedis (ICD-10 - B07.0) Chronic 01/03/2024 Verruca pedis (ICD-10 - B07.0) Chronic 11/01/2023 Right foot pain (ICD-10 - M79.671) 01/03/2024 Right foot pain (ICD-10 - M79.671) 11/01/2023 Ingrown nail (ICD-10 - L60.0) Plan Of Treatment Pending Test Test Name Order Date 85654-EACJKUK NAIL, 6 OR MORE 03/25/2018 84883-GEFDHXL NAIL, 6 OR MORE 06/24/2018 40289-PIIVFUU NAIL, 6 OR MORE 10/07/2018 72154-CJFOWIF NAIL, 6 OR MORE 01/06/2019 50612-JGPKQJK NAIL, 6 OR MORE 04/16/2019 97417-EOPOPEY NAIL, 6 OR MORE 07/16/2019 87016-PIKSPSM NAIL, 6 OR MORE 04/25/2021 15515-SNOGLBJ NAIL, 6 OR MORE 07/25/2021 55955-RLPBQYD NAIL, 6 OR MORE 10/24/2021 63404-UUNJCBR NAIL, 6 OR MORE 01/23/2022 07143-FDHRTPZ NAIL, 6 OR MORE 04/10/2022 36810-XRXJCYT NAIL, 6 OR MORE 07/27/2022 66035-DBWLTLX NAIL, 6 OR MORE 10/19/2022 01079-XHGHVWY NAIL, 6 OR MORE 01/08/2023 66678-XGXYSMW NAIL, 6 OR MORE 03/26/2023 85451-VLJYSBA NAIL, 6 OR MORE 06/27/2023 24581-IGTIFDC NAIL, 6 OR MORE 11/01/2023 15723-RFLWYCF NAIL, 6 OR MORE 01/03/2024 04117-Zoff Destruction, 1-14 01/03/2024 10989-Jwhn Destruction, 1-14 05/14/2023 56471-Ongk Destruction, -14 11/01/2023 57893-Bmll Destruction, -14 06/27/2023 26626-Gypy Destruction, -14 03/26/2023 80857-Glbf Destruction, -14 09/07/2022 80734-Tytj Destruction, -14 02/19/2023 22971-Uray Destruction, -14 01/08/2023 51944-Zdjz Destruction, -14 10/19/2022 23722-Jtsq Destruction, -14 02/13/2024 21355-Jnqb Destruction, -14 07/27/2022 59895-Sbyg Destruction, 14 05/29/2022 43024-Jzhk Destruction, 04-0104/10/2022 21708-Pgpm Destruction, 04-0103/02/2022 90355-Cqig Destruction, 04-0101/23/2022 48999-Rgxe Destruction, 04-0110/24/2021 96807-Fyhu Destruction, 04-0112/15/2021 74443-Coci Destruction, 04-0107/16/2019 51814-Lfnw Destruction, 04-0104/16/2019 70813-Mblo Destruction, 04-0101/06/2019 23987-Tzau Destruction, 04-0110/07/2018 87590-Zmem Destruction, 04-0106/24/2018 58559-Ssqc Destruction, 04-0104/12/2017 20961-Tgll Destruction, 04-0107/16/2017 61574-Ucmf Destruction, 04-0110/17/2017 65234-Zmyg Destruction, 04-0101/10/2018 79408-Ufap Destruction, 04-0103/25/2018 42058-Ksmikmty Plate 04/25/2021 93465-Yguvmsmc Plate 11/01/2023 07971- Debride <25 sq cm 04/10/2022 08560-UHFOPLP SKIN/TISSUE 03/22/2022 01230-TUZR SKIN LESIONS, OVER 4 04/10/19 03605-IJCR SKIN LESIONS, OVER 4 07/28/19 26414-UNNF SKIN LESIONS, OVER 4 01/24/20 24933-RJLH SKIN LESIONS, OVER 4 10/25/19 50369-DNTR SKIN LESIONS, OVER 4 07/26/19 22 58345-TZPK SKIN LESIONS, OVER 4 04/25/19 22 61575-NBLY SKIN LESIONS, OVER 4 01/03/20 24 18033-VSYU SKIN LESIONS, OVER 4 06/27/19 24 47475-UFKS SKIN LESIONS, OVER 4 11/01/19 24 58114-JVDV SKIN LESIONS, OVER 4 10/20/19 50321-HLSJ SKIN LESIONS, OVER 4 01/09/20 23 01591-DZHK SKIN LESIONS, OVER 4 03/26/19 Insurance Providers Payer Name Payer Address Payer Phone Subscriber Number Group Number Insured Name Patient Relationship to Insured Coverage Start Date Coverage End Date [employer]age [address] [place] [address] [id number] Anslemo Rod Self - patient is the insured Medical (General) History Medical History History ICD Code Arthritis Back,Hip,and Knee pain Cancer Cholesterol High blood pressure Gout Mumps Surgical History Surgery Date(Month/Year) back surgery colon hand/wrist 05/10/17
--- OUTSIDE RECORDS SUMMARY | 2024-07-30 09:52 | XMS_ITS ---
[facility] Address [address] [place] [address] Care Team Providers Care Microcomputer Support Specialist Name Role Phone Santana Butler MD Primary Care Provider Aris Macario Unavailable [phone] Allergies Allergen (clinical drug ingredient) Drug/Non Drug [...] Ordered Date Performed Result Body Sit e 21030-Xrkg Destruction, 1-14 02/13/2024 N/A Encounters Encounter Location Date Provider Diagnosis [facility] [place] [address] [place] [phone] 02/13/2024 Aris Torres Right foot pain M79.671 and Plantar wart B07.0 Assessments Encounter Date Diagnosis (ICD Code) Assessment Notes Treatment Notes Treatment Clinical Notes Section Notes 02/13/2024 Right foot pain (ICD-10 - M79.671) 02/13/2024 Plantar wart (ICD-10 - B07.0) Plan Of Treatment Pending Test Test Name Order Date 94597-Bncg Destruction, 1-02/13/2024 Next Appt Details Follow Up: prn, Reason: Procedure Notes * Category Sub-Category Detail Notes Wart Treatment Procedure Verruca, as desc ribed in exam, were debrided to pin- point bleeding margins with sterile 15 surgical blade, silver nitrate chemocautery applied, recomm. immune-boosting meds such as zinc, recomm. follow up with topical chemosurgical agents, Pt defers any other forms of tx - 18479 Progress Notes * Anselmo MALLOY MDOB: [birth year] (73 yo M)Acc No.[id number]:02/13/2024 Progress Notes Patient:?Anselmo MALLOY Provider:?Aris Torres DPM :1950???Age:73 Y???Sex:Male Darrick e:02/13/2024 Address:[address] [place], [place] [phone] Pcp:Santana Butler MD Subjective: * Chief Complaints: * ???Wart(s) [...] defers any other forms of tx - 50607.? * Procedure Codes:?34464 Wart Destruction, 1-14 * Follow Up:?prn * Images: * Sign off status: Completed true * Provider:?Aris Torres DPM Date:?2023 Generated for Piero harvey/Sherine/eTransmitting on:?07/30/2024 09:51 AM EDT History and Physical Notes * [...]
--- OUTSIDE RECORDS SUMMARY | 2024-07-30 09:52 | XMS_ITS | Clinical Summary ---
Author Organization [facility] Address [address] [facility] [address] [place] [address] Care Team Providers Care Automotive Light Mechanic Name Role Phone Unavailable Primary Care Provider [...] patient's age to complete this topic Insurance ED [facility] , [address] [address]
--- OUTSIDE RECORDS SUMMARY | 2024-07-30 09:52 | XMS_ITS ---
Author Organization [facility] Address [address] [place] [address] Care Team Providers Care In Classroom Tutor Name Role Phone Santana Butler MD Primary Care Provider Aris Macario Unavailable [phone] Allergies Allergen (clinical drug ingredient) Drug/Non Drug [...] Ordered Date Performed Result Body Sit e 19343-OSOXUYL NAIL, 6 OR MORE 11/01/2023 N/A 77211-Fvep Destruction, 1-14 11/01/2023 N/A 96973-Rpjjcslw Plate 11/01/2023 N/A 06887-NADK SKIN LESIONS, OVER 4 11/01/2023 N/A Encounters Encounter Location Date Provider Diagnosis [facility] [address] [address] 11/01/2023 Aris Torres Atherosclerosis of [place] artery of both lower extremities, with unspecified presence of clinical manifestation I70.203 ; Onychomycosis B35.1 ; Pain of toe of right foot M79.674 ; Pain of toe of left foot M79.675 ; Verruca pedis B07.0 ; Right foot pain M79.671 and Ingrown nail L60.0 Assessments Encounter Date Diagnosis (ICD Code) Assessment Notes Treatment Notes Treatment Clinical Notes Section Notes 11/01/2023 Atherosclerosis of [place] artery of both lower extremities, with unspecified [...] Treatment Pending Test Test Name Order Date 82543-FLYYIYA NAIL, 6 OR MORE 11/01/2023 13343-Tefo Destruction, 1-14 11/01/2023 79139-Rycmnewg Plate 11/01/2023 62247-KSQE SKIN LESIONS, OVER 4 11/01/19 24 Next Appt Details Follow Up: prn, Reason: Procedure Notes * Category Sub-Category Detail Notes Wart Treatment Procedure Verrucae(s) were debrided to pin-point bleeding margins with sterile surgical blade, silver nitrate chemocautery applied, recomm. immune-boosting meds such as zinc, recomm. follow up with topical chemosurgical agents, Pt defers any other forms of tx (73457) Nail Avulsion Procedure A fine sterile e [...] Motrin was recommended for pain or discomfort (56502) , CIRCULATION: Pt was advised as to [...] as necessary. Patient chooses, no pharmaceutical tx (12216) Keratoma Treatment Parring or Cutting o f Benign Hyperkeratotic Lesion(s) 53952 ( >4 Lesions) - The Benign hyperkeratotic lesions, as described above were pared, and/or cut utilizing a sterile #15 blade, tissue nippers, and/or dremel, Q8 Progress Notes * Anselmo MALLOY MDOB: [birth year] (72 yo M)Acc No.[id number]:11/01/2023 Progress Note Patient:?Anselmo Malloy Provider:?Aris Torres DPM :1950???Age:72 Y???Sex:Male Darrick e:11/01/2023 Address:[address] [place], [place] [phone] Pcp:Santana Butler MD Subjective: * Chief Complaints: [...] ?no Exercise. ?Marital status: . 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 * Medications:?TakingAspirin Atorvastatin Calcium 40 MG Tablet [...] * Assessment: 1.?Onychomycosis - B35.1?2.? Atherosclerosis of [place] artery of both lower extremities, with unspecified presence of clinical manifestation - I70.203?3.?Pain of toe of right foot - M79.674?4.?Pain of toe of left foot - M79.675?5.?Verruca pedis - B07.0, RIGHT, Chronic?6.?Right foot pain - M79.671?7.?Ingrown nail - L60.0, Lateral nail border , TA? Plan: * Treatment: 2.?Atherosclerosis of [place] artery of both lower extremities, with unspecified presence of clinical manifestation?Procedure: 80372-TLTA SKIN LESIONS, OVER 4 3.?Verruca pedis?Procedure: 36085-Ccdg Destruction, 1-14 4.?Ingrown nail?Procedure: 66128-Uttxrqcc Plate * Procedures:?Debride Nail 6-10:?Nail debridement?Nail debridement performed extensively to reduce/remove overall nail length, girth, thickness, subungual debris, and necrotic tissue, by manual and electrical means through the use of a nail nipper and/or dremel, to more viable healthy nail plate or bed tissue 6-10. Silver nitrate used for any petechial bleeding as necessary. Patient chooses, no pharmaceutical tx (12120).?Keratoma Treatment:?Parring or Cutting of Benign Hyperkeratotic Lesion(s)?94028 ( >4 Lesions) - The Benign hyperkeratotic [...] Motrin was recommended for pain or discomfort (95752) , CIRCULATION: Pt was advised as to the risk of delayed or nonhealing due to circulation. Pt is to call the office with any questions, concerns, or complications.?Wart Treatment:?Procedure?Verrucae(s) were debrided to pin-point bleeding margins with sterile surgical blade, silver nitrate chemocautery applied, recomm. immune-boosting meds such as zinc, recomm. follow up with topical chemosurgical agents, Pt defers any other forms of tx (76197).? * Procedure Codes:?27376 DEBRI DE NAIL, 6 OR MORE, Modifiers: XS 49073 Avulsion Plate, Modifiers: XS , WM01343 Wart Destruction, 1-14, Modifiers: XS 47363 TRIM SKIN LESIONS, OVER 4, Modifiers: XS [...]
--- OUTSIDE RECORDS SUMMARY | 2024-07-30 09:52 | XMS_ITS | Encounter Summary ---
Author Organization [facility] Address [address] [place] [address] Phone Care Team Providers Care Glove Parts Inspector Name Role Phone Santana Butler MD Primary Care Provider [phone] Encounter Details Date Type Department Care Team (Latest Contact Info) Description 08/30/2023 Office Communication [facility] [address] [place] [address] Maurizio Sanz MD [address] [address] Hypo-osmolality and hyponatremia (Primary Dx) [...] Visit [facility] [address] [place] [address] Maurizio Sanz MD [address] [facility] [address] [place] [address] Scheduled Orders Name Type Priority Associated Diagnoses Orde r Schedule Renal function panel Lab Routine Hypo-osmolality and hyponatremia Expected: 09/06/2023, Expires: 09/28/2024 documented as of this encounter Visit Diagnoses Diagnosis Hypo-osmolality and hyponatremia- Primary documented in this encounter Care Teams Glove Parts Inspector Relationship Specialty Start Date End Date Santana Butler MD [address] [place], [place] PCP - General Internal Medicine 10/24/21 documented as of this encounter
[2024-07-30 10:56] LABS: Prostate Specific Antigen < 0.10 ng/mL (<0.05-4.0)
== END 2024-07-30 09:21 | disposition home or self-care (01) ==
LOC: HO.10HDL 09:20
PROVIDERS: Visit Provider Physician Assistant
DX: Z85.46 Personal history of malignant neoplasm of prostate (principal); Z12.5 Encounter for screening for malignant neoplasm of prostate
CPT/HCPCS: 36415; 84153